=== PATIENT | female | born 1960 | race Caucasian/White ===

== ENCOUNTER 2016-07-14 08:38 | Outpatient (CLI) | payer BC ==
[~2016-07-14] VITALS: Ht 167.6 cm; Wt 95.0 kg
[~2016-07-14 08:38] MED LIST: ACYCLOVIR400 MG PO; ALEVE 220MG220 MG PO; AMBIEN 10MG10 MG PO; AMBIEN10 MG PO; CELEXA 20MG20 MG/TA1 PO; CELEXA 20MG20 MG/TAB PO; CELEXA20 MG PO; DEPO-PROVER150 MG/M1 IM; DOXYCYCLINE 10100 MG PO; IMURAN 50MG TAB50 MG PO; IRON325 M1 PO; MEDROXYPROGESTERONE; MOBIC15 MG PO; MULTI VITAMINS1 TAB PO; NAPROSYN250 MG PO; NEURONTIN300 MG/CAP PO; PENTASA PO; PREDNISONE20 MG PO; REMICADE IV; REMICADE V100 MG/VIA IV; ULTRAM 50MG TAB50 MG PO; VALTREX PO; VITAMIN B COMPL1 T16 PO; ZYRTEC10 MG PO
[2016-07-14 09:18] LABS: MEAN CELL VOLUME 92 fl (80.0-100.0); MEAN CORPUSCULAR HGB CONC 32 g/dl (33.0-37.0); MEAN PLATELET VOLUME 10.4 fl (7.4-10.4); PLATELET COUNT 174 K/mm3 (130-400); RED BLOOD COUNT 3.55 M/mm3 (4.10-5.30); REDCELL DISTRIBUTION WIDTH-CV 13.3 % (11.5-14.5); WHITE BLOOD COUNT 3.4 K/mm3 (4.8-10.8)
[2016-07-14 09:19] LABS: HEMATOCRIT 32.8 % (37.0-47.0); HEMOGLOBIN 10.6 g/dl (12.5-16.0); MEAN CORPUSCULAR HEMOGLOBIN 30 pg (27.0-31.0)
[2016-07-14 09:27] VITALS: BP 98/55; PULSE 74; TEMP 98.3
[2016-07-14 09:32] LABS: ADJUSTED CALCIUM 9.6 mg/dL (8.4-10.2); ALBUMIN 4.4 gm/dL (3.5-5.0); BILIRUBIN,TOTAL 0.7 mg/dL (0.0-1.0); CALCIUM 9.9 mg/dL (8.4-10.2); CREATININE, serum 0.82 mg/dL (0.52-1.25); POTASSIUM 4.5 mmol/L (3.4-5.0); TOTAL PROTEIN 7.8 gm/dL (6.4-8.2)
[2016-07-14 10:35] VITALS: BP 103/56; PULSE 70; TEMP 98.3
[2016-07-14 11:05] VITALS: BP 123/67; PULSE 69; TEMP 98.4
[2016-07-14 11:35] VITALS: BP 89/56; PULSE 71; TEMP 98.7
[2016-07-14 12:12] VITALS: BP 121/65; PULSE 69; TEMP 98.2
== END 2016-07-14 12:20 | disposition home or self-care (01) ==
LOC: EUO 08:38
PROVIDERS: Internal Medicine Gastroenterology
DX: K50.90 Crohn's disease, unspecified, without complications (principal)
CPT/HCPCS: J1745; J2930; J7050

== ENCOUNTER 2016-09-08 09:04 | Outpatient (CLI) | payer BC ==
[~2016-09-08] VITALS: Ht 167.6 cm; Wt 95.5 kg
[2016-09-08 09:39] VITALS: BP 99/61; PULSE 76; TEMP 98.7
[2016-09-08 10:12] LABS: MEAN CELL VOLUME 94 fl (80.0-100.0); MEAN CORPUSCULAR HGB CONC 32 g/dl (33.0-37.0); MEAN PLATELET VOLUME 10.7 fl (7.4-10.4); PLATELET COUNT 189 K/mm3 (130-400); RED BLOOD COUNT 3.63 M/mm3 (4.10-5.30); REDCELL DISTRIBUTION WIDTH-CV 13.2 % (11.5-14.5); WHITE BLOOD COUNT 4.2 K/mm3 (4.8-10.8)
[2016-09-08 10:16] LABS: HEMATOCRIT 34.2 % (37.0-47.0); MEAN CORPUSCULAR HEMOGLOBIN 30 pg (27.0-31.0)
[2016-09-08 10:21] LABS: ADJUSTED CALCIUM 9.3 mg/dL (8.4-10.2); ALBUMIN 4.2 gm/dL (3.5-5.0); BILIRUBIN,TOTAL 0.7 mg/dL (0.0-1.0); CALCIUM 9.5 mg/dL (8.4-10.2); CREATININE, serum 0.86 mg/dL (0.52-1.25); POTASSIUM 4.1 mmol/L (3.4-5.0); TOTAL PROTEIN 7.9 gm/dL (6.4-8.2)
[2016-09-08 11:00] VITALS: BP 110/70; PULSE 68; TEMP 96.9
[2016-09-08 11:30] VITALS: BP 131/89; PULSE 60
[2016-09-08 12:00] VITALS: BP 141/89; PULSE 64; TEMP 98
[2016-09-08 12:30] VITALS: BP 127/69; PULSE 71; TEMP 98
== END 2016-09-08 13:11 | disposition home or self-care (01) ==
LOC: EUO 09:04
PROVIDERS: Internal Medicine Gastroenterology
DX: K50.90 Crohn's disease, unspecified, without complications (principal)
CPT/HCPCS: J1745; J2930; J7050

== ENCOUNTER 2016-11-03 09:14 | Outpatient (CLI) | payer BC ==
[~2016-11-03] VITALS: Ht 167.6 cm; Wt 95.9 kg
[2016-11-03 10:13] LABS: MEAN CELL VOLUME 95 fl (80.0-100.0); MEAN CORPUSCULAR HGB CONC 32 g/dl (33.0-37.0); MEAN PLATELET VOLUME 10.3 fl (7.4-10.4); PLATELET COUNT 176 K/mm3 (130-400); RED BLOOD COUNT 3.31 M/mm3 (4.10-5.30); WHITE BLOOD COUNT 4.2 K/mm3 (4.8-10.8)
[2016-11-03 10:21] LABS: ADJUSTED CALCIUM 9.4 mg/dL (8.4-10.2); ALBUMIN 3.9 gm/dL (3.5-5.0); BILIRUBIN,TOTAL 0.7 mg/dL (0.0-1.0); CALCIUM 9.3 mg/dL (8.4-10.2); CREATININE, serum 0.89 mg/dL (0.52-1.25); POTASSIUM 3.9 mmol/L (3.4-5.0); TOTAL PROTEIN 6.8 gm/dL (6.4-8.2)
[2016-11-03 10:25] LABS: HEMATOCRIT 31.3 % (37.0-47.0); HEMOGLOBIN 10.1 g/dl (12.5-16.0); MEAN CORPUSCULAR HEMOGLOBIN 31 pg (27.0-31.0)
[2016-11-03 10:31] VITALS: BP 114/70; PULSE 72; TEMP 99.2
[2016-11-03 11:10] VITALS: BP 105/67; PULSE 59; TEMP 98.1
[2016-11-03 11:40] VITALS: BP 118/72; PULSE 60; TEMP 98.4
[2016-11-03 12:10] VITALS: BP 122/70; PULSE 69
[2016-11-03 12:40] VITALS: BP 106/62; PULSE 74
[2016-11-03 13:10] VITALS: BP 112/76; PULSE 67
== END 2016-11-03 13:35 | disposition home or self-care (01) ==
LOC: EUO 09:14
PROVIDERS: Internal Medicine Gastroenterology
DX: K50.90 Crohn's disease, unspecified, without complications (principal)
CPT/HCPCS: J1745; J2930; J7050

== ENCOUNTER 2017-01-05 08:48 | Outpatient (CLI) | payer BC ==
[~2017-01-05] VITALS: Ht 167.6 cm; Wt 95.4 kg
[2017-01-05 09:30] LABS: MEAN CELL VOLUME 94 fl (80.0-100.0); MEAN CORPUSCULAR HGB CONC 33 g/dl (33.0-37.0); MEAN PLATELET VOLUME 10.3 fl (7.4-10.4); PLATELET COUNT 174 K/mm3 (130-400); RED BLOOD COUNT 3.59 M/mm3 (4.10-5.30); WHITE BLOOD COUNT 3.8 K/mm3 (4.8-10.8)
[2017-01-05 09:32] LABS: HEMATOCRIT 33.7 % (37.0-47.0); MEAN CORPUSCULAR HEMOGLOBIN 31 pg (27.0-31.0)
[2017-01-05 09:41] LABS: ADJUSTED CALCIUM 8.9 mg/dL (8.4-10.2); ALBUMIN 4.2 gm/dL (3.5-5.0); BILIRUBIN,TOTAL 0.6 mg/dL (0.0-1.0); CALCIUM 9.1 mg/dL (8.4-10.2); CREATININE, serum 0.76 mg/dL (0.52-1.25); POTASSIUM 4.5 mmol/L (3.4-5.0); TOTAL PROTEIN 7.4 gm/dL (6.4-8.2)
[2017-01-05 10:37] VITALS: BP 112/68; PULSE 74; TEMP 98.5
[2017-01-05] MEDS ORDERED: CYMBALTA 20MG20 MG PO (10:41)
[2017-01-05 11:07] VITALS: BP 125/73; PULSE 78; TEMP 98.6
[2017-01-05 11:45] VITALS: BP 124/73; PULSE 67; TEMP 98.4
[2017-01-05 12:43] VITALS: BP 132/81; PULSE 74; TEMP 99.1
== END 2017-01-05 12:43 | disposition home or self-care (01) ==
LOC: EUO 08:48
PROVIDERS: Internal Medicine Gastroenterology
DX: K50.90 Crohn's disease, unspecified, without complications (principal); Z79.899 Other long term (current) drug therapy
CPT/HCPCS: J1745; J2930; J7050

== ENCOUNTER 2017-03-09 12:55 | Outpatient (CLI) | payer BC ==
[~2017-03-09] VITALS: Ht 167.6 cm; Wt 98.7 kg
[~2017-03-09 12:55] MED LIST changes: +CYMBALTA 20MG20 MG PO
[2017-03-09 13:22] LABS: MEAN CELL VOLUME 93 fl (80.0-100.0); MEAN CORPUSCULAR HGB CONC 33 g/dl (33.0-37.0); MEAN PLATELET VOLUME 10.5 fl (7.4-10.4); PLATELET COUNT 162 K/mm3 (130-400); REDCELL DISTRIBUTION WIDTH-CV 12.9 % (11.5-14.5)
[2017-03-09 13:26] LABS: HEMATOCRIT 32.4 % (37.0-47.0); HEMOGLOBIN 10.8 g/dl (12.5-16.0); MEAN CORPUSCULAR HEMOGLOBIN 31 pg (27.0-31.0)
[2017-03-09 13:34] LABS: ALBUMIN 4.3 gm/dL (3.5-5.0); BILIRUBIN,TOTAL 0.6 mg/dL (0.0-1.0); CALCIUM 9.5 mg/dL (8.4-10.2); CREATININE, serum 0.89 mg/dL (0.52-1.25); POTASSIUM 4.2 mmol/L (3.4-5.0); TOTAL PROTEIN 7.6 gm/dL (6.4-8.2)
[2017-03-09 14:10] VITALS: BP 120/70; PULSE 65; TEMP 98.3
[2017-03-09 14:40] VITALS: BP 112/66; PULSE 66
[2017-03-09 15:10] VITALS: BP 118/74; PULSE 58; TEMP 98.3
[2017-03-09 15:40] VITALS: BP 126/74; PULSE 58
[2017-03-09 16:10] VITALS: BP 118/64; PULSE 62; TEMP 98.1
== END 2017-03-09 16:51 | disposition home or self-care (01) ==
LOC: EUO 12:55
PROVIDERS: Internal Medicine Gastroenterology
DX: K50.90 Crohn's disease, unspecified, without complications (principal); Z79.899 Other long term (current) drug therapy
CPT/HCPCS: J1745; J2930; J7050; Q5102-ZB

== ENCOUNTER 2017-05-03 13:02 | Outpatient (CLI) | payer BC ==
[~2017-05-03] VITALS: Ht 167.6 cm; Wt 97.5 kg
[2017-05-03 13:26] LABS: HEMATOCRIT 31.4 % (37.0-47.0); HEMOGLOBIN 10.3 g/dl (12.5-16.0); MEAN CELL VOLUME 95 fl (80.0-100.0); MEAN CORPUSCULAR HEMOGLOBIN 31 pg (27.0-31.0); MEAN CORPUSCULAR HGB CONC 33 g/dl (33.0-37.0); MEAN PLATELET VOLUME 10.5 fl (7.4-10.4); PLATELET COUNT 169 K/mm3 (130-400); WHITE BLOOD COUNT 5.3 K/mm3 (4.8-10.8)
[2017-05-03 13:43] LABS: ADJUSTED CALCIUM 9.3 mg/dL (8.4-10.2); ALBUMIN 4.3 gm/dL (3.5-5.0); BILIRUBIN,TOTAL 0.4 mg/dL (0.0-1.0); CALCIUM 9.5 mg/dL (8.4-10.2); CREATININE, serum 0.74 mg/dL (0.52-1.25); POTASSIUM 4.2 mmol/L (3.4-5.0); TOTAL PROTEIN 7.6 gm/dL (6.4-8.2)
[2017-05-03 15:00] VITALS: BP 123/72; PULSE 64; TEMP 98.7
[2017-05-03 15:30] VITALS: BP 130/78; PULSE 63; TEMP 98
[2017-05-03 16:00] VITALS: BP 134/73; PULSE 62; TEMP 98.5
[2017-05-03 16:30] VITALS: BP 141/75; PULSE 61; TEMP 98.4
[2017-05-03 17:00] VITALS: BP 126/78; PULSE 64; TEMP 98.2
== END 2017-05-03 17:30 | disposition home or self-care (01) ==
LOC: EUO 13:02
PROVIDERS: Physician Assistant
DX: K50.90 Crohn's disease, unspecified, without complications (principal)
CPT/HCPCS: J1200; J2930; J7050; Q5102-ZB

== ENCOUNTER 2017-06-29 08:58 | Outpatient (CLI) | payer BC ==
[~2017-06-29] VITALS: Ht 167.6 cm; Wt 97.2 kg
[2017-06-29 10:01] LABS: MEAN CELL VOLUME 95 fl (80.0-100.0); MEAN CORPUSCULAR HGB CONC 31 g/dl (33.0-37.0); PLATELET COUNT 191 K/mm3 (130-400); RED BLOOD COUNT 2.53 M/mm3 (4.10-5.30); REDCELL DISTRIBUTION WIDTH-CV 13.6 % (11.5-14.5)
[2017-06-29 10:02] LABS: HEMATOCRIT 24.1 % (37.0-47.0); HEMOGLOBIN 7.4 g/dl (12.5-16.0); MEAN CORPUSCULAR HEMOGLOBIN 29 pg (27.0-31.0)
[2017-06-29 10:11] LABS: ALBUMIN 4.1 gm/dL (3.5-5.0); BILIRUBIN,TOTAL 0.3 mg/dL (0.0-1.0); CALCIUM 9.6 mg/dL (8.4-10.2); CREATININE, serum 0.87 mg/dL (0.52-1.25); POTASSIUM 4.2 mmol/L (3.4-5.0)
[2017-06-29 11:14] VITALS: BP 119/59; PULSE 76; TEMP 98
[2017-06-29 11:45] VITALS: BP 121/77; PULSE 71; TEMP 98
[2017-06-29 12:15] VITALS: BP 126/75; PULSE 69
[2017-06-29 12:45] VITALS: BP 129/79; PULSE 70
== END 2017-06-29 13:21 | disposition home or self-care (01) ==
LOC: EUO 08:58
PROVIDERS: Internal Medicine Gastroenterology
DX: K50.90 Crohn's disease, unspecified, without complications (principal)
CPT/HCPCS: J2930; J7050; Q5102-ZB

== ENCOUNTER 2017-08-31 10:04 | Outpatient (CLI) | payer BC ==
[~2017-08-31] VITALS: Ht 167.6 cm; Wt 96.0 kg
[2017-08-31 10:27] LABS: MEAN CELL VOLUME 88 fl (80.0-100.0); MEAN CORPUSCULAR HGB CONC 31 g/dl (33.0-37.0); MEAN PLATELET VOLUME 10.1 fl (7.4-10.4); PLATELET COUNT 193 K/mm3 (130-400); REDCELL DISTRIBUTION WIDTH-CV 15.7 % (11.5-14.5)
[2017-08-31 10:29] LABS: HEMATOCRIT 27.2 % (37.0-47.0); HEMOGLOBIN 8.4 g/dl (12.5-16.0); MEAN CORPUSCULAR HEMOGLOBIN 27 pg (27.0-31.0)
[2017-08-31 10:50] LABS: ALBUMIN 4.3 gm/dL (3.5-5.0); BILIRUBIN,TOTAL 0.4 mg/dL (0.0-1.0); CALCIUM 8.9 mg/dL (8.4-10.2); CREATININE, serum 0.85 mg/dL (0.52-1.25); POTASSIUM 3.8 mmol/L (3.4-5.0); TOTAL PROTEIN 7.4 gm/dL (6.4-8.2)
[2017-08-31 12:00] VITALS: BP 122/71; PULSE 74; TEMP 98.6
[2017-08-31 12:30] VITALS: BP 122/68; PULSE 73; TEMP 98.3
[2017-08-31 13:00] VITALS: BP 99/50; PULSE 85; TEMP 98.5
[2017-08-31 13:30] VITALS: BP 148/76; PULSE 76; TEMP 98.4
[2017-08-31 14:00] VITALS: BP 148/76; PULSE 74; TEMP 98.5
== END 2017-08-31 15:45 | disposition home or self-care (01) ==
LOC: EUO 10:04
PROVIDERS: Internal Medicine Gastroenterology
DX: K50.90 Crohn's disease, unspecified, without complications (principal); Z79.899 Other long term (current) drug therapy
CPT/HCPCS: J2930; J7050; Q5102-ZB

== ENCOUNTER 2017-10-25 08:49 | Outpatient (CLI) | payer BC ==
[~2017-10-25] VITALS: Ht 167.6 cm; Wt 96.0 kg
[2017-10-25 09:10] VITALS: BP 120/75; PULSE 67; TEMP 98.7
[2017-10-25 09:16] LABS: MEAN CELL VOLUME 89 fl (80.0-100.0); MEAN CORPUSCULAR HGB CONC 31 g/dl (33.0-37.0); PLATELET COUNT 150 K/mm3 (130-400); REDCELL DISTRIBUTION WIDTH-CV 18.3 % (11.5-14.5)
[2017-10-25] MEDS ORDERED: IRON TABLETS325 MG PO (09:16)
[2017-10-25 09:19] LABS: HEMATOCRIT 31.1 % (37.0-47.0); HEMOGLOBIN 9.6 g/dl (12.5-16.0); MEAN CORPUSCULAR HEMOGLOBIN 27 pg (27.0-31.0)
[2017-10-25 09:25] LABS: BILIRUBIN,TOTAL 0.5 mg/dL (0.0-1.0); CALCIUM 9.3 mg/dL (8.4-10.2); CREATININE, serum 0.79 mg/dL (0.52-1.25); POTASSIUM 3.9 mmol/L (3.4-5.0); TOTAL PROTEIN 7.8 gm/dL (6.4-8.2)
[2017-10-25 10:45] VITALS: BP 129/81; PULSE 80; TEMP 98.2
[2017-10-25 11:15] VITALS: BP 124/73; PULSE 70; TEMP 98.4
[2017-10-25 11:45] VITALS: BP 119/7; BP 119/74; PULSE 78; TEMP 98.5
[2017-10-25 12:15] VITALS: BP 136/85; PULSE 72; TEMP 98.1
[2017-10-25 12:45] VITALS: BP 148/84; PULSE 71; TEMP 98.1
== END 2017-10-25 14:30 | disposition home or self-care (01) ==
LOC: EUO 08:49
PROVIDERS: Internal Medicine Gastroenterology
DX: K50.90 Crohn's disease, unspecified, without complications (principal)
CPT/HCPCS: J2920; J7050; Q5103

== ENCOUNTER 2017-12-20 09:01 | Outpatient (CLI) | payer BC ==
[~2017-12-20] VITALS: Ht 167.6 cm; Wt 96.2 kg
[~2017-12-20 09:01] MED LIST changes: +IRON TABLETS325 MG PO
[2017-12-20 10:14] LABS: HEMOGLOBIN 10.1 g/dl (12.5-16.0); MEAN CELL VOLUME 95 fl (80.0-100.0); MEAN CORPUSCULAR HEMOGLOBIN 30 pg (27.0-31.0); MEAN CORPUSCULAR HGB CONC 32 g/dl (33.0-37.0); MEAN PLATELET VOLUME 10.5 fl (7.4-10.4); PLATELET COUNT 170 K/mm3 (130-400); RED BLOOD COUNT 3.37 M/mm3 (4.10-5.30); REDCELL DISTRIBUTION WIDTH-CV 14.7 % (11.5-14.5)
[2017-12-20 10:16] LABS: HEMATOCRIT 31.9 % (37.0-47.0)
[2017-12-20 10:21] LABS: ALBUMIN 3.6 gm/dL (3.5-5.0); BILIRUBIN,TOTAL 0.3 mg/dL (0.0-1.0); CALCIUM 8.8 mg/dL (8.4-10.2); CREATININE, serum 0.71 mg/dL (0.52-1.25); POTASSIUM 4.1 mmol/L (3.4-5.0); TOTAL PROTEIN 7.2 gm/dL (6.4-8.2)
[2017-12-20 11:00] VITALS: BP 134/79; PULSE 61; TEMP 98.5
[2017-12-20 11:30] VITALS: BP 125/78; PULSE 64; TEMP 98.3
[2017-12-20 12:00] VITALS: BP 128/73; PULSE 67; TEMP 98.3
[2017-12-20 12:30] VITALS: BP 137/76; PULSE 73; TEMP 98.5
[2017-12-20 13:00] VITALS: BP 141/80; PULSE 67; TEMP 98.2
== END 2017-12-20 13:19 | disposition home or self-care (01) ==
LOC: EUO 09:01
PROVIDERS: Internal Medicine Gastroenterology
DX: K50.90 Crohn's disease, unspecified, without complications (principal)
CPT/HCPCS: J2930; J7050; Q5103

== ENCOUNTER 2018-02-14 09:53 | Outpatient (CLI) | payer BC ==
[2018-02-14 10:17] LABS: HEMOGLOBIN 11.2 g/dl (12.5-16.0); MEAN CELL VOLUME 93 fl (80.0-100.0); MEAN CORPUSCULAR HEMOGLOBIN 30 pg (27.0-31.0); MEAN CORPUSCULAR HGB CONC 33 g/dl (33.0-37.0); MEAN PLATELET VOLUME 10.5 fl (7.4-10.4); PLATELET COUNT 148 K/mm3 (130-400); REDCELL DISTRIBUTION WIDTH-CV 12.6 % (11.5-14.5)
[2018-02-14 10:19] LABS: HEMATOCRIT 34.3 % (37.0-47.0)
[2018-02-14 10:29] LABS: ALBUMIN 4.2 gm/dL (3.5-5.0); BILIRUBIN,TOTAL 0.5 mg/dL (0.0-1.0); CALCIUM 9.4 mg/dL (8.4-10.2); CREATININE, serum 0.78 mg/dL (0.52-1.25); POTASSIUM 3.7 mmol/L (3.4-5.0); TOTAL PROTEIN 7.6 gm/dL (6.4-8.2)
[2018-02-14 10:36] VITALS: BP 111/62; PULSE 70; TEMP 98.5
[2018-02-14 11:15] VITALS: BP 130/42; PULSE 73; TEMP 98.5
[2018-02-14 11:45] VITALS: BP 110/63; PULSE 64; TEMP 98.1
[2018-02-14 12:30] VITALS: BP 124/72; PULSE 59; TEMP 98.7
[2018-02-14 13:15] VITALS: BP 120/70; PULSE 60; TEMP 98.7
== END 2018-02-14 13:30 | disposition home or self-care (01) ==
LOC: EUO 09:53
PROVIDERS: Internal Medicine Gastroenterology
DX: K50.90 Crohn's disease, unspecified, without complications (principal); Z79.899 Other long term (current) drug therapy
CPT/HCPCS: J2920; J7050; Q5103

== ENCOUNTER 2018-04-11 08:52 | Outpatient (CLI) | payer BC ==
[~2018-04-11] VITALS: Ht 170.2 cm; Wt 97.7 kg
[2018-04-11 09:00] VITALS: BP 105/57; PULSE 76; TEMP 98.4
[2018-04-11 09:24] LABS: BILIRUBIN,TOTAL 0.6 mg/dL (0.0-1.0); CREATININE, serum 0.75 mg/dL (0.52-1.25); POTASSIUM 3.7 mmol/L (3.4-5.0); TOTAL PROTEIN 7.4 gm/dL (6.4-8.2)
[2018-04-11 09:27] LABS: HEMOGLOBIN 10.8 g/dl (12.5-16.0); MEAN CELL VOLUME 93 fl (80.0-100.0); MEAN CORPUSCULAR HEMOGLOBIN 30 pg (27.0-31.0); MEAN CORPUSCULAR HGB CONC 33 g/dl (33.0-37.0); PLATELET COUNT 185 K/mm3 (130-400); RED BLOOD COUNT 3.56 M/mm3 (4.10-5.30); REDCELL DISTRIBUTION WIDTH-CV 13.3 % (11.5-14.5)
[2018-04-11 09:28] LABS: HEMATOCRIT 33.1 % (37.0-47.0)
[2018-04-11 10:15] VITALS: BP 109/61; PULSE 70; TEMP 98.4
[2018-04-11 10:45] VITALS: BP 110/80; PULSE 78; TEMP 98.2
[2018-04-11 11:15] VITALS: BP 120/67; PULSE 65
[2018-04-11 12:29] VITALS: BP 128/68; PULSE 71; TEMP 98.2
== END 2018-04-11 12:30 | disposition home or self-care (01) ==
LOC: EUO 08:52
PROVIDERS: Internal Medicine Gastroenterology
DX: K50.90 Crohn's disease, unspecified, without complications (principal); Z79.899 Other long term (current) drug therapy
CPT/HCPCS: J2930; J7050; Q5103

== ENCOUNTER 2018-06-06 09:01 | Outpatient (CLI) | payer BC ==
[~2018-06-06] VITALS: Ht 170.2 cm; Wt 97.4 kg
[2018-06-06 09:33] LABS: HEMOGLOBIN 10.6 g/dl (12.5-16.0); MEAN CELL VOLUME 95 fl (80.0-100.0); MEAN CORPUSCULAR HEMOGLOBIN 31 pg (27.0-31.0); MEAN CORPUSCULAR HGB CONC 32 g/dl (33.0-37.0); MEAN PLATELET VOLUME 10.6 fl (7.4-10.4); PLATELET COUNT 165 K/mm3 (130-400); RED BLOOD COUNT 3.46 M/mm3 (4.10-5.30); REDCELL DISTRIBUTION WIDTH-CV 12.9 % (11.5-14.5)
[2018-06-06] MEDS ORDERED: MUCINEX D 12001 TER PO (09:53)
[2018-06-06 09:59] LABS: ALBUMIN 3.9 gm/dL (3.5-5.0); BILIRUBIN,TOTAL 0.5 mg/dL (0.0-1.0); CALCIUM 9.1 mg/dL (8.4-10.2); CREATININE, serum 0.75 mg/dL (0.52-1.25); POTASSIUM 3.8 mmol/L (3.4-5.0)
[2018-06-06 10:30] VITALS: BP 136/71; PULSE 65; TEMP 97.6
[2018-06-06 11:00] VITALS: BP 122/73; PULSE 59; TEMP 98.1
[2018-06-06 11:30] VITALS: BP 127/77; PULSE 66; TEMP 98.4
[2018-06-06 12:00] VITALS: BP 130/74; PULSE 65; TEMP 98
[2018-06-06 12:30] VITALS: BP 137/78; PULSE 65; TEMP 97.8
== END 2018-06-06 12:38 | disposition home or self-care (01) ==
LOC: EUO 09:01
PROVIDERS: Internal Medicine Gastroenterology
DX: K50.90 Crohn's disease, unspecified, without complications (principal); Z79.899 Other long term (current) drug therapy
CPT/HCPCS: J2930; J7050; Q5103

== ENCOUNTER 2018-08-01 10:48 | Outpatient (CLI) | payer BC ==
[~2018-08-01] VITALS: Ht 170.2 cm; Wt 97.5 kg
[2018-08-01] VITALS (8 sets, daily range): BP systolic 126–165; BP diastolic 69–98; PULSE 58–69; TEMP 98.2–98.5
[~2018-08-01 10:48] MED LIST changes: +MUCINEX D 12001 TER PO
[2018-08-01 11:17] LABS: HEMATOCRIT 34.1 % (37.0-47.0); HEMOGLOBIN 11.1 g/dl (12.5-16.0); MEAN CELL VOLUME 94 fl (80.0-100.0); MEAN CORPUSCULAR HEMOGLOBIN 31 pg (27.0-31.0); MEAN CORPUSCULAR HGB CONC 33 g/dl (33.0-37.0); MEAN PLATELET VOLUME 10.5 fl (7.4-10.4); PLATELET COUNT 163 K/mm3 (130-400); RED BLOOD COUNT 3.63 M/mm3 (4.10-5.30); REDCELL DISTRIBUTION WIDTH-CV 12.9 % (11.5-14.5)
[2018-08-01 11:26] LABS: ALBUMIN 4.1 gm/dL (3.5-5.0); BILIRUBIN,TOTAL 0.4 mg/dL (0.0-1.0); CALCIUM 9.2 mg/dL (8.4-10.2); CREATININE, serum 0.74 mg/dL (0.52-1.25); TOTAL PROTEIN 7.5 gm/dL (6.4-8.2)
== END 2018-08-01 14:50 | disposition home or self-care (01) ==
LOC: EUO 10:48
PROVIDERS: Internal Medicine Gastroenterology
DX: K50.90 Crohn's disease, unspecified, without complications (principal); Z79.899 Other long term (current) drug therapy
CPT/HCPCS: J1200; J1745; J2920; J7050; Q5103

== ENCOUNTER 2018-09-26 08:06 | Outpatient (CLI) | payer BC ==
[2018-09-26] VITALS (8 sets, daily range): BP systolic 110–127; BP diastolic 68–74; PULSE 69–75; TEMP 98.8
[~2018-09-26] VITALS: Ht 170.2 cm; Wt 97.5 kg
[2018-09-26 08:42] LABS: ALANINE AMINOTRANSFERASE < 6 U/L (9-52); ALKALINE PHOSPHATASE 91 U/L (50-136); ANION GAP 6 mmol/L (7-16); AST,SGOT 19 U/L (15-37); BILIRUBIN,TOTAL 0.4 mg/dL (0.0-1.0); BLOOD UREA NITROGEN 20 mg/dL (7-17); CALCIUM 9.1 mg/dL (8.4-10.2); CARBON DIOXIDE 28 mmol/L (22-30); CHLORIDE 107 mmol/L (98-107); CREATININE, serum 0.74 mg/dL (0.52-1.25); GLUCOSE 104 mg/dL (74-106); POTASSIUM 3.8 mmol/L (3.4-5.0); SODIUM 142 mmol/L (137-145); TOTAL PROTEIN 7.4 gm/dL (6.4-8.2)
[2018-09-26 08:45] LABS: HEMOGLOBIN 11.2 g/dl (12.5-16.0); MEAN CELL VOLUME 93 fl (80.0-100.0); MEAN CORPUSCULAR HEMOGLOBIN 30 pg (27.0-31.0); MEAN CORPUSCULAR HGB CONC 32 g/dl (33.0-37.0); MEAN PLATELET VOLUME 11.1 fl (7.4-10.4); PLATELET COUNT 164 K/mm3 (130-400); RED BLOOD COUNT 3.71 M/mm3 (4.10-5.30); REDCELL DISTRIBUTION WIDTH-CV 12.9 % (11.5-14.5)
[2018-09-26 09:12] LABS: HEMATOCRIT 34.6 % (37.0-47.0)
== END 2018-09-26 11:37 | disposition home or self-care (01) ==
LOC: EUO 08:06
PROVIDERS: Internal Medicine Gastroenterology
DX: K50.90 Crohn's disease, unspecified, without complications (principal); Z79.899 Other long term (current) drug therapy
CPT/HCPCS: J2930; J7050; Q5103

== ENCOUNTER 2018-11-21 08:19 | Outpatient (CLI) | payer BC ==
[~2018-11-21] VITALS: Ht 170.2 cm; Wt 98.3 kg
[2018-11-21 08:43] LABS: MEAN CELL VOLUME 94 fl (80.0-100.0); MEAN CORPUSCULAR HEMOGLOBIN 30 pg (27.0-31.0); MEAN CORPUSCULAR HGB CONC 32 g/dl (33.0-37.0); MEAN PLATELET VOLUME 10.4 fl (7.4-10.4); PLATELET COUNT 167 K/mm3 (130-400); RED BLOOD COUNT 3.63 M/mm3 (4.10-5.30); REDCELL DISTRIBUTION WIDTH-CV 12.9 % (11.5-14.5)
[2018-11-21 08:50] LABS: ALBUMIN 4.2 gm/dL (3.5-5.0); BILIRUBIN,TOTAL 0.4 mg/dL (0.0-1.0); CALCIUM 9.4 mg/dL (8.4-10.2); CREATININE, serum 0.77 (0.52-1.25); TOTAL PROTEIN 7.7 gm/dL (6.4-8.2)
[2018-11-21 09:45] VITALS: BP 113/69; PULSE 62; TEMP 98.5
[2018-11-21 10:15] VITALS: BP 141/69; PULSE 69; TEMP 98.5
[2018-11-21 10:45] VITALS: BP 134/66; PULSE 72; TEMP 98.5
[2018-11-21 11:15] VITALS: BP 151/85; PULSE 72; TEMP 98.5
[2018-11-21 11:30] VITALS: BP 149/78; PULSE 70; TEMP 98.5
== END 2018-11-21 11:30 | disposition home or self-care (01) ==
LOC: EUO 08:19
PROVIDERS: Internal Medicine Gastroenterology
DX: K50.90 Crohn's disease, unspecified, without complications (principal); Z79.899 Other long term (current) drug therapy
CPT/HCPCS: J2920; J7050; Q5103

== ENCOUNTER 2019-01-16 08:10 | Outpatient (CLI) | payer BC ==
[~2019-01-16] VITALS: Ht 170.2 cm; Wt 96.7 kg
[2019-01-16 09:10] LABS: HEMOGLOBIN 10.3 g/dl (12.5-16.0); MEAN CELL VOLUME 94 fl (80.0-100.0); MEAN CORPUSCULAR HEMOGLOBIN 30 pg (27.0-31.0); MEAN CORPUSCULAR HGB CONC 32 g/dl (33.0-37.0); MEAN PLATELET VOLUME 10.9 fl (7.4-10.4); PLATELET COUNT 152 K/mm3 (130-400); RED BLOOD COUNT 3.42 M/mm3 (4.10-5.30); REDCELL DISTRIBUTION WIDTH-CV 13.1 % (11.5-14.5)
[2019-01-16 09:21] LABS: ALBUMIN 3.8 gm/dL (3.5-5.0); BILIRUBIN,TOTAL 0.4 mg/dL (0.0-1.0); CALCIUM 9.1 mg/dL (8.4-10.2); CREATININE, serum 0.79 (0.52-1.25); POTASSIUM 3.9 mmol/L (3.4-5.0); TOTAL PROTEIN 7.1 gm/dL (6.4-8.2)
[2019-01-16 10:02] VITALS: BP 168/79; PULSE 68; TEMP 98.4
[2019-01-16 10:25] VITALS: BP 132/68; PULSE 62; TEMP 98.4
[2019-01-16 10:55] VITALS: BP 128/72; PULSE 66; TEMP 98.4
[2019-01-16 11:25] VITALS: BP 135/72; PULSE 62; TEMP 98.4
[2019-01-16 11:55] VITALS: BP 139/70; PULSE 64; TEMP 98.1
== END 2019-01-16 12:00 | disposition home or self-care (01) ==
LOC: EUO 08:10
PROVIDERS: Internal Medicine Gastroenterology
DX: K50.90 Crohn's disease, unspecified, without complications (principal); Z79.899 Other long term (current) drug therapy
CPT/HCPCS: J2930; J7050; Q5103

== ENCOUNTER 2019-03-13 10:20 | Outpatient (CLI) | payer BC ==
[~2019-03-13] VITALS: Ht 170.2 cm; Wt 97.5 kg
[2019-03-13 11:06] LABS: ALANINE AMINOTRANSFERASE < 6 U/L (9-52); ALKALINE PHOSPHATASE 90 U/L (50-136); ANION GAP 6 mmol/L (7-16); AST,SGOT 23 U/L (15-37); BILIRUBIN,TOTAL 0.5 mg/dL (0.0-1.0); BLOOD UREA NITROGEN 20 mg/dL (7-17); CALCIUM 8.9 mg/dL (8.4-10.2); CARBON DIOXIDE 27 mmol/L (22-30); CHLORIDE 107 mmol/L (98-107); CREATININE, serum 0.83 (0.52-1.25); GLUCOSE 86 mg/dL (74-106); POTASSIUM 3.9 mmol/L (3.4-5.0); SODIUM 140 mmol/L (137-145); TOTAL PROTEIN 7.3 gm/dL (6.4-8.2)
[2019-03-13 11:30] VITALS: BP 113/72; PULSE 66; TEMP 98.9
[2019-03-13 12:05] VITALS: BP 124/71; PULSE 74; TEMP 99
[2019-03-13] MEDS ORDERED: ATARAX 25MG25 MG/TAB PO (12:11)
[2019-03-13 12:13] LABS: HEMATOCRIT 30.3 % (37.0-47.0); HEMOGLOBIN 9.6 g/dl (12.5-16.0); MEAN CELL VOLUME 94 fl (80.0-100.0); MEAN CORPUSCULAR HEMOGLOBIN 30 pg (27.0-31.0); MEAN CORPUSCULAR HGB CONC 32 g/dl (33.0-37.0); MEAN PLATELET VOLUME 10.8 fl (7.4-10.4); PLATELET COUNT 156 K/mm3 (130-400); RED BLOOD COUNT 3.22 M/mm3 (4.10-5.30); REDCELL DISTRIBUTION WIDTH-CV 13.6 % (11.5-14.5)
[2019-03-13 12:35] VITALS: BP 120/69; PULSE 16; TEMP 73
[2019-03-13 13:00] VITALS: BP 135/82; PULSE 66; TEMP 98.2
[2019-03-13 13:47] VITALS: BP 139/71; PULSE 81; TEMP 98.4
== END 2019-03-13 14:38 | disposition home or self-care (01) ==
LOC: EUO 10:20
PROVIDERS: Internal Medicine Gastroenterology
DX: K50.90 Crohn's disease, unspecified, without complications (principal); Z79.899 Other long term (current) drug therapy
CPT/HCPCS: J2920; J7050; Q5103

== ENCOUNTER 2019-05-08 10:39 | Outpatient (CLI) | payer BC ==
[~2019-05-08] VITALS: Ht 170.2 cm; Wt 96.1 kg
[~2019-05-08 10:39] MED LIST changes: +ATARAX 25MG25 MG/TAB PO
[2019-05-08 11:04] LABS: HEMATOCRIT 32.5 % (37.0-47.0); HEMOGLOBIN 10.3 g/dl (12.5-16.0); MEAN CELL VOLUME 95 fl (80.0-100.0); MEAN CORPUSCULAR HEMOGLOBIN 30 pg (27.0-31.0); MEAN CORPUSCULAR HGB CONC 32 g/dl (33.0-37.0); MEAN PLATELET VOLUME 10.1 fl (7.4-10.4); PLATELET COUNT 205 K/mm3 (130-400); RED BLOOD COUNT 3.42 M/mm3 (4.10-5.30); REDCELL DISTRIBUTION WIDTH-CV 13.1 % (11.5-14.5)
[2019-05-08 11:19] LABS: ALBUMIN 4.3 gm/dL (3.5-5.0); BILIRUBIN,TOTAL 0.4 mg/dL (0.0-1.0); CALCIUM 9.7 mg/dL (8.4-10.2); CREATININE, serum 0.84 (0.52-1.25); POTASSIUM 4.1 mmol/L (3.4-5.0); TOTAL PROTEIN 7.8 gm/dL (6.4-8.2)
[2019-05-08 12:05] VITALS: BP 118/69; PULSE 70; TEMP 98.1
[2019-05-08 12:35] VITALS: BP 113/65; PULSE 65; TEMP 98.5
[2019-05-08 13:05] VITALS: BP 122/69; PULSE 66
[2019-05-08 13:35] VITALS: BP 131/78; PULSE 68; TEMP 98.4
[2019-05-08 14:05] VITALS: BP 126/74; PULSE 67; TEMP 98.4
== END 2019-05-08 15:26 | disposition home or self-care (01) ==
LOC: EUO 10:39
PROVIDERS: Internal Medicine Gastroenterology
DX: K50.90 Crohn's disease, unspecified, without complications (principal); Z79.899 Other long term (current) drug therapy
CPT/HCPCS: J2930; J7050; Q5103

== ENCOUNTER 2019-09-04 09:54 | Outpatient (CLI) | payer BC ==
[2019-09-04] VITALS (7 sets, daily range): BP systolic 112–135; BP diastolic 62–82; PULSE 69–80; TEMP 97.9–98.4
[~2019-09-04] VITALS: Ht 170.2 cm; Wt 91.2 kg
[2019-09-04 10:30] LABS: MEAN CELL VOLUME 97 fl (80.0-100.0); MEAN CORPUSCULAR HEMOGLOBIN 31 pg (27.0-31.0); MEAN CORPUSCULAR HGB CONC 32 g/dl (33.0-37.0); MEAN PLATELET VOLUME 10.4 fl (7.4-10.4); PLATELET COUNT 204 K/mm3 (130-400); REDCELL DISTRIBUTION WIDTH-CV 13.4 % (11.5-14.5)
[2019-09-04 10:34] LABS: HEMATOCRIT 34.8 % (37.0-47.0)
[2019-09-04 10:40] LABS: ALANINE AMINOTRANSFERASE < 6 U/L (9-52); ALBUMIN 4.8 gm/dL (3.5-5.0); ALKALINE PHOSPHATASE 88 U/L (50-136); ANION GAP 10 mmol/L (7-16); AST,SGOT 25 U/L (15-37); BILIRUBIN,TOTAL 0.5 mg/dL (0.0-1.0); BLOOD UREA NITROGEN 23 mg/dL (7-17); CALCIUM 9.8 mg/dL (8.4-10.2); CARBON DIOXIDE 28 mmol/L (22-30); CHLORIDE 104 mmol/L (98-107); CREATININE, serum 0.94 (0.52-1.25); GLUCOSE 92 mg/dL (74-106); POTASSIUM 3.9 mmol/L (3.4-5.0); SODIUM 142 mmol/L (137-145); TOTAL PROTEIN 8.5 gm/dL (6.4-8.2)
== END 2019-09-04 14:17 | disposition home or self-care (01) ==
LOC: EUO 09:54
PROVIDERS: Internal Medicine Gastroenterology
DX: K50.90 Crohn's disease, unspecified, without complications (principal); Z79.899 Other long term (current) drug therapy
CPT/HCPCS: J2930; J7050; Q5103

== ENCOUNTER 2019-10-30 09:58 | Outpatient (CLI) | payer BC ==
[~2019-10-30] VITALS: Ht 170.2 cm; Wt 91.7 kg
[2019-10-30 10:31] LABS: MEAN CELL VOLUME 94 fl (80.0-100.0); MEAN CORPUSCULAR HEMOGLOBIN 30 pg (27.0-31.0); MEAN CORPUSCULAR HGB CONC 32 g/dl (33.0-37.0); MEAN PLATELET VOLUME 10.7 fl (7.4-10.4); PLATELET COUNT 183 K/mm3 (130-400); RED BLOOD COUNT 3.66 M/mm3 (4.10-5.30); REDCELL DISTRIBUTION WIDTH-CV 13.5 % (11.5-14.5)
[2019-10-30 10:35] LABS: HEMATOCRIT 34.4 % (37.0-47.0)
[2019-10-30] MEDS ORDERED: CELEXA40 MG PO (10:35)
[2019-10-30 10:38] VITALS: BP 117/63; PULSE 77; TEMP 98.3
[2019-10-30 10:53] LABS: ALBUMIN 4.5 gm/dL (3.5-5.0); BILIRUBIN,TOTAL 0.6 mg/dL (0.0-1.0); CALCIUM 9.7 mg/dL (8.4-10.2); CREATININE, serum 0.88 (0.52-1.25); POTASSIUM 3.8 mmol/L (3.4-5.0); TOTAL PROTEIN 8.1 gm/dL (6.4-8.2)
[2019-10-30 11:20] VITALS: BP 118/82; PULSE 68; TEMP 98.1
[2019-10-30 11:50] VITALS: BP 119/62; PULSE 66; TEMP 98.1
[2019-10-30 12:20] VITALS: BP 134/71; PULSE 63; TEMP 98.1
[2019-10-30 12:50] VITALS: BP 140/74; PULSE 65
[2019-10-30 13:20] VITALS: BP 142/71; PULSE 66; TEMP 98.1
== END 2019-10-30 13:25 | disposition home or self-care (01) ==
LOC: EUO 09:58
PROVIDERS: Internal Medicine Gastroenterology
DX: K50.90 Crohn's disease, unspecified, without complications (principal); Z79.899 Other long term (current) drug therapy
CPT/HCPCS: J2930; J7050; Q5103

== ENCOUNTER 2019-12-25 10:01 | Outpatient (CLI) | payer BC ==
[~2019-12-25] VITALS: Ht 170.2 cm; Wt 92.8 kg
[~2019-12-25 10:01] MED LIST changes: +CELEXA40 MG PO
[2019-12-25 10:49] LABS: HEMOGLOBIN 10.4 g/dl (12.5-16.0); MEAN CELL VOLUME 95 fl (80.0-100.0); MEAN CORPUSCULAR HEMOGLOBIN 30 pg (27.0-31.0); MEAN CORPUSCULAR HGB CONC 32 g/dl (33.0-37.0); MEAN PLATELET VOLUME 10.7 fl (7.4-10.4); PLATELET COUNT 152 K/mm3 (130-400); RED BLOOD COUNT 3.48 M/mm3 (4.10-5.30); REDCELL DISTRIBUTION WIDTH-CV 13.1 % (11.5-14.5)
[2019-12-25 10:50] LABS: HEMATOCRIT 32.9 % (37.0-47.0)
[2019-12-25 10:52] LABS: BILIRUBIN,TOTAL 0.5 mg/dL (0.0-1.0); CALCIUM 9.1 mg/dL (8.4-10.2); CREATININE, serum 0.76 (0.52-1.25); POTASSIUM 3.5 mmol/L (3.4-5.0); TOTAL PROTEIN 7.5 gm/dL (6.4-8.2)
[2019-12-25 11:54] VITALS: BP 119/78; PULSE 66; TEMP 98.2
[2019-12-25 12:24] VITALS: BP 117/77; PULSE 63; TEMP 98.2
[2019-12-25 12:54] VITALS: BP 124/76; PULSE 60
[2019-12-25 13:24] VITALS: BP 121/73; PULSE 62
[2019-12-25 13:54] VITALS: BP 117/73; PULSE 61; TEMP 98.7
[2019-12-25 14:24] VITALS: BP 121/76; PULSE 64; TEMP 97.7
== END 2019-12-25 15:33 | disposition home or self-care (01) ==
LOC: EUO 10:01
PROVIDERS: Internal Medicine Gastroenterology
DX: K50.90 Crohn's disease, unspecified, without complications (principal); Z79.899 Other long term (current) drug therapy
CPT/HCPCS: J2920; J7050; Q5103

== ENCOUNTER 2020-02-19 10:06 | Outpatient (CLI) | payer BC ==
[~2020-02-19] VITALS: Ht 170.2 cm; Wt 91.3 kg
[2020-02-19 10:30] LABS: HEMOGLOBIN 10.9 g/dl (12.5-16.0); MEAN CELL VOLUME 94 fl (80.0-100.0); MEAN CORPUSCULAR HEMOGLOBIN 30 pg (27.0-31.0); MEAN CORPUSCULAR HGB CONC 32 g/dl (33.0-37.0); MEAN PLATELET VOLUME 10.3 fl (7.4-10.4); PLATELET COUNT 165 K/mm3 (130-400); RED BLOOD COUNT 3.59 M/mm3 (4.10-5.30); REDCELL DISTRIBUTION WIDTH-CV 13.2 % (11.5-14.5)
[2020-02-19 10:32] LABS: HEMATOCRIT 33.8 % (37.0-47.0)
[2020-02-19 10:44] LABS: ALBUMIN 4.2 gm/dL (3.5-5.0); BILIRUBIN,TOTAL 0.6 mg/dL (0.0-1.0); CALCIUM 9.3 mg/dL (8.4-10.2); CREATININE, serum 0.84 (0.52-1.25); TOTAL PROTEIN 7.9 gm/dL (6.4-8.2)
[2020-02-19 11:10] VITALS: BP 119/71; PULSE 62; TEMP 98
[2020-02-19 11:40] VITALS: BP 150/85; PULSE 61; TEMP 98
[2020-02-19 12:10] VITALS: BP 136/85; PULSE 58; TEMP 98
[2020-02-19 12:40] VITALS: BP 140/85; PULSE 51; TEMP 98
[2020-02-19 13:16] VITALS: BP 143/82; PULSE 62; TEMP 98
== END 2020-02-19 13:20 | disposition home or self-care (01) ==
LOC: EUO 10:06
PROVIDERS: Internal Medicine Gastroenterology
DX: K50.90 Crohn's disease, unspecified, without complications (principal); Z79.899 Other long term (current) drug therapy
CPT/HCPCS: J2920; J7050; Q5103

== ENCOUNTER 2020-04-15 10:15 | Outpatient (CLI) | payer BC ==
[2020-04-15 11:23] LABS: HEMOGLOBIN 10.8 g/dl (12.5-16.0); MEAN CELL VOLUME 93 fl (80.0-100.0); MEAN CORPUSCULAR HEMOGLOBIN 30 pg (27.0-31.0); MEAN CORPUSCULAR HGB CONC 32 g/dl (33.0-37.0); MEAN PLATELET VOLUME 10.9 fl (7.4-10.4); PLATELET COUNT 168 K/mm3 (130-400); RED BLOOD COUNT 3.62 M/mm3 (4.10-5.30); REDCELL DISTRIBUTION WIDTH-CV 13.5 % (11.5-14.5)
[2020-04-15 11:24] LABS: ALBUMIN 4.2 gm/dL (3.5-5.0); BILIRUBIN,TOTAL 0.7 mg/dL (0.0-1.0); CALCIUM 9.1 mg/dL (8.4-10.2); CREATININE, serum 0.74 (0.52-1.25); POTASSIUM 3.8 mmol/L (3.4-5.0); TOTAL PROTEIN 7.5 gm/dL (6.4-8.2)
[2020-04-15 11:31] LABS: HEMATOCRIT 33.5 % (37.0-47.0)
[2020-04-15 12:45] VITALS: BP 126/79; PULSE 64; TEMP 98.3
[2020-04-15 13:15] VITALS: BP 123/81; PULSE 73
[2020-04-15 13:45] VITALS: BP 137/82; PULSE 78
[2020-04-15 14:15] VITALS: BP 138/91; PULSE 63
[2020-04-15 14:45] VITALS: BP 146/84; PULSE 65; TEMP 98.5
== END 2020-04-15 15:39 | disposition home or self-care (01) ==
LOC: EUO 10:15
PROVIDERS: Internal Medicine Gastroenterology
DX: Z79.899 Other long term (current) drug therapy (principal)
CPT/HCPCS: J2930; J7050; Q5103

== ENCOUNTER 2020-06-10 09:39 | Outpatient (CLI) | payer BC ==
[~2020-06-10] VITALS: Ht 170.2 cm; Wt 94.3 kg
[2020-06-10 10:25] LABS: HEMOGLOBIN 10.4 g/dl (12.5-16.0); MEAN CELL VOLUME 94 fl (80.0-100.0); MEAN CORPUSCULAR HEMOGLOBIN 31 pg (27.0-31.0); MEAN CORPUSCULAR HGB CONC 33 g/dl (33.0-37.0); MEAN PLATELET VOLUME 10.6 fl (7.4-10.4); PLATELET COUNT 175 K/mm3 (130-400); RED BLOOD COUNT 3.36 M/mm3 (4.10-5.30); REDCELL DISTRIBUTION WIDTH-CV 13.5 % (11.5-14.5)
[2020-06-10 10:28] LABS: HEMATOCRIT 31.7 % (37.0-47.0)
[2020-06-10 10:32] LABS: ALBUMIN 4.1 gm/dL (3.5-5.0); BILIRUBIN,TOTAL 0.4 mg/dL (0.0-1.0); CALCIUM 8.9 mg/dL (8.4-10.2); CREATININE, serum 0.88 (0.52-1.25); POTASSIUM 4.1 mmol/L (3.4-5.0); TOTAL PROTEIN 7.2 gm/dL (6.4-8.2)
[2020-06-10 11:15] VITALS: BP 139/82; PULSE 68; TEMP 97.9
[2020-06-10 11:45] VITALS: BP 131/80; PULSE 62; TEMP 97.9
[2020-06-10 12:15] VITALS: BP 145/82; PULSE 72; TEMP 97.9
[2020-06-10 12:45] VITALS: BP 133/80; PULSE 71; TEMP 97.9
[2020-06-10 13:15] VITALS: BP 150/89; PULSE 65; TEMP 97.9
== END 2020-06-10 13:22 | disposition home or self-care (01) ==
LOC: EUO 09:39
PROVIDERS: Physician Assistant
DX: K50.90 Crohn's disease, unspecified, without complications (principal); Z79.899 Other long term (current) drug therapy
CPT/HCPCS: J2930; J7050; Q5103

== ENCOUNTER 2020-08-11 07:57 | Outpatient (CLI) | payer BC ==
[~2020-08-11] VITALS: Ht 170.2 cm; Wt 93.6 kg
[2020-08-11 08:40] VITALS: BP 150/80; PULSE 67; TEMP 97.6
[2020-08-11 08:46] LABS: BASO % 1.2 % (0.0-2.0); EOS # 0.1 (0.0-0.7); GRAN % 59.1 % (42.2-75.2); HEMOGLOBIN 10.9 g/dl (12.5-16.0); LYMPH # 0.9 (1.2-3.4); LYMPH % 27.6 % (20.0-51.0); MEAN CELL VOLUME 92 fl (80.0-100.0); MEAN CORPUSCULAR HEMOGLOBIN 30 pg (27.0-31.0); MEAN CORPUSCULAR HGB CONC 33 g/dl (33.0-37.0); MEAN PLATELET VOLUME 10.4 fl (7.4-10.4); MONO # 0.3 (0.1-0.6); MONO % 8.8 % (1.7-9.3); PLATELET COUNT 166 K/mm3 (130-400); RED BLOOD COUNT 3.61 M/mm3 (4.10-5.30); REDCELL DISTRIBUTION WIDTH-CV 12.7 % (11.5-14.5)
[2020-08-11 08:47] LABS: HEMATOCRIT 33.3 % (37.0-47.0)
[2020-08-11 08:52] LABS: ALBUMIN 4.2 gm/dL (3.5-5.0); BILIRUBIN,TOTAL 0.5 mg/dL (0.0-1.0); CALCIUM 9.1 mg/dL (8.4-10.2); CREATININE, serum 0.78 (0.52-1.25); POTASSIUM 3.9 mmol/L (3.4-5.0); TOTAL PROTEIN 7.3 gm/dL (6.4-8.2)
[2020-08-11 09:32] VITALS: BP 129/77; PULSE 74
[2020-08-11 10:00] VITALS: BP 147/95; PULSE 62
[2020-08-11 10:30] VITALS: BP 141/96; PULSE 59
[2020-08-11 11:00] VITALS: BP 132/69; PULSE 69
[2020-08-11 11:30] VITALS: BP 136/78; PULSE 69; TEMP 98
== END 2020-08-11 11:40 | disposition home or self-care (01) ==
LOC: EUO 07:57
PROVIDERS: Internal Medicine Gastroenterology
DX: K50.90 Crohn's disease, unspecified, without complications (principal); Z79.899 Other long term (current) drug therapy
CPT/HCPCS: J2930; J7050; Q5103

== ENCOUNTER 2020-10-06 09:56 | Outpatient (CLI) | payer BC ==
[~2020-10-06] VITALS: Ht 170.2 cm; Wt 92.2 kg
[2020-10-06 10:09] LABS: BASO # 0.1 (0.0-0.2); BASO % 1.3 % (0.0-2.0); EOS # 0.1 (0.0-0.7); EOS % 2.7 % (0-4.0); GRAN # 2.2 (1.4-6.5); GRAN % 58.6 % (42.2-75.2); HEMOGLOBIN 11.2 g/dl (12.5-16.0); LYMPH # 1.1 (1.2-3.4); LYMPH % 29.6 % (20.0-51.0); MEAN CELL VOLUME 94 fl (80.0-100.0); MEAN CORPUSCULAR HEMOGLOBIN 30 pg (27.0-31.0); MEAN CORPUSCULAR HGB CONC 32 g/dl (33.0-37.0); MEAN PLATELET VOLUME 10.4 fl (7.4-10.4); MONO # 0.3 (0.1-0.6); MONO % 7.5 % (1.7-9.3); PLATELET COUNT 192 K/mm3 (130-400); RED BLOOD COUNT 3.69 M/mm3 (4.10-5.30); REDCELL DISTRIBUTION WIDTH-CV 13.3 % (11.5-14.5)
[2020-10-06 10:12] LABS: HEMATOCRIT 34.6 % (37.0-47.0)
[2020-10-06 10:19] LABS: ALBUMIN 4.5 gm/dL (3.5-5.0); BILIRUBIN,TOTAL 0.6 mg/dL (0.0-1.0); CALCIUM 9.5 mg/dL (8.4-10.2); CREATININE, serum 0.81 (0.52-1.25); POTASSIUM 4.2 mmol/L (3.4-5.0); TOTAL PROTEIN 8.2 gm/dL (6.4-8.2)
[2020-10-06 10:31] VITALS: BP 112/65; PULSE 69; TEMP 97.7
[2020-10-06 11:00] VITALS: BP 119/62; PULSE 69
[2020-10-06 11:30] VITALS: BP 124/78; PULSE 62
[2020-10-06 12:00] VITALS: BP 143/87; PULSE 61
[2020-10-06 12:30] VITALS: BP 151/90; PULSE 69
[2020-10-06 13:00] VITALS: PULSE 68
== END 2020-10-06 13:15 | disposition home or self-care (01) ==
LOC: EUO 09:56
PROVIDERS: Internal Medicine Gastroenterology
DX: K50.90 Crohn's disease, unspecified, without complications (principal); Z79.899 Other long term (current) drug therapy
CPT/HCPCS: J2930; J7050; Q5103

== ENCOUNTER 2020-12-01 10:25 | Outpatient (CLI) | payer BC ==
[2020-12-01 10:51] LABS: HEMATOCRIT 31.9 % (37.0-47.0); HEMOGLOBIN 10.3 g/dl (12.5-16.0); MEAN CELL VOLUME 94 fl (80.0-100.0); MEAN CORPUSCULAR HEMOGLOBIN 30 pg (27.0-31.0); MEAN CORPUSCULAR HGB CONC 32 g/dl (33.0-37.0); MEAN PLATELET VOLUME 10.6 fl (7.4-10.4); PLATELET COUNT 182 K/mm3 (130-400); RED BLOOD COUNT 3.39 M/mm3 (4.10-5.30)
[2020-12-01 11:00] LABS: ALBUMIN 4.2 gm/dL (3.5-5.0); BILIRUBIN,TOTAL 0.4 mg/dL (0.0-1.0); CALCIUM 9.1 mg/dL (8.4-10.2); CREATININE, serum 0.72 (0.52-1.25); POTASSIUM 3.9 mmol/L (3.4-5.0); TOTAL PROTEIN 7.7 gm/dL (6.4-8.2)
[2020-12-01 12:15] VITALS: BP 121/82; PULSE 60; TEMP 98.4
[2020-12-01 12:45] VITALS: BP 132/81; PULSE 60
[2020-12-01 13:15] VITALS: BP 143/88; PULSE 60
[2020-12-01 13:45] VITALS: BP 146/92; PULSE 62
[2020-12-01 14:15] VITALS: BP 104/85; PULSE 66
== END 2020-12-01 17:30 | disposition home or self-care (01) ==
LOC: EUO 10:25
PROVIDERS: Internal Medicine Gastroenterology
DX: K50.90 Crohn's disease, unspecified, without complications (principal)
CPT/HCPCS: J2930; J7050; Q5103

== ENCOUNTER 2021-01-26 09:43 | Outpatient (CLI) | payer BC ==
[~2021-01-26] VITALS: Ht 170.2 cm; Wt 89.5 kg
[2021-01-26 10:15] LABS: HEMOGLOBIN 10.8 g/dl (12.5-16.0); MEAN CELL VOLUME 93 fl (80.0-100.0); MEAN CORPUSCULAR HEMOGLOBIN 30 pg (27.0-31.0); MEAN CORPUSCULAR HGB CONC 33 g/dl (33.0-37.0); MEAN PLATELET VOLUME 10.9 fl (7.4-10.4); PLATELET COUNT 169 K/mm3 (130-400); RED BLOOD COUNT 3.56 M/mm3 (4.10-5.30); REDCELL DISTRIBUTION WIDTH-CV 12.9 % (11.5-14.5)
[2021-01-26 10:16] LABS: HEMATOCRIT 33.2 % (37.0-47.0)
[2021-01-26 10:23] LABS: ALBUMIN 4.4 gm/dL (3.5-5.0); BILIRUBIN,TOTAL 0.5 mg/dL (0.0-1.0); CALCIUM 9.3 mg/dL (8.4-10.2); CREATININE, serum 0.77 (0.52-1.25); POTASSIUM 3.9 mmol/L (3.4-5.0); TOTAL PROTEIN 7.6 gm/dL (6.4-8.2)
[2021-01-26 11:54] VITALS: BP 121/70; PULSE 65; TEMP 97.9
[2021-01-26 12:30] VITALS: BP 129/71; PULSE 84
[2021-01-26 13:00] VITALS: BP 138/78; PULSE 58
[2021-01-26 13:30] VITALS: BP 152/82; PULSE 59
[2021-01-26 13:57] VITALS: BP 129/81; PULSE 64
== END 2021-01-26 15:33 | disposition home or self-care (01) ==
LOC: EUO 09:43
PROVIDERS: Internal Medicine Gastroenterology
DX: K50.90 Crohn's disease, unspecified, without complications (principal); Z79.899 Other long term (current) drug therapy
CPT/HCPCS: J2930; J7050; Q5103

== ENCOUNTER 2021-03-23 09:52 | Outpatient (CLI) | payer BC ==
[~2021-03-23] VITALS: Ht 170.2 cm; Wt 90.1 kg
[2021-03-23 10:27] LABS: BASO # 0.1 (0.0-0.2); BASO % 1.5 % (0.0-2.0); EOS # 0.1 (0.0-0.7); EOS % 3.1 % (0-4.0); GRAN # 1.8 (1.4-6.5); GRAN % 53.5 % (42.2-75.2); HEMOGLOBIN 10.4 g/dl (12.5-16.0); LYMPH % 30.9 % (20.0-51.0); MEAN CELL VOLUME 93 fl (80.0-100.0); MEAN CORPUSCULAR HEMOGLOBIN 30 pg (27.0-31.0); MEAN CORPUSCULAR HGB CONC 33 g/dl (33.0-37.0); MEAN PLATELET VOLUME 10.8 fl (7.4-10.4); MONO # 0.4 (0.1-0.6); MONO % 10.7 % (1.7-9.3); PLATELET COUNT 141 K/mm3 (130-400); RED BLOOD COUNT 3.43 M/mm3 (4.10-5.30); REDCELL DISTRIBUTION WIDTH-CV 12.8 % (11.5-14.5)
[2021-03-23 10:30] VITALS: BP 108/69; PULSE 74; TEMP 98.9
[2021-03-23 10:39] LABS: ALBUMIN 4.1 gm/dL (3.5-5.0); BILIRUBIN,TOTAL 0.4 mg/dL (0.0-1.0); CALCIUM 8.9 mg/dL (8.4-10.2); CREATININE, serum 0.86 (0.52-1.25); POTASSIUM 3.9 mmol/L (3.4-5.0); TOTAL PROTEIN 7.1 gm/dL (6.4-8.2)
[2021-03-23 10:40] LABS: HEMATOCRIT 31.8 % (37.0-47.0)
[2021-03-23 11:50] VITALS: BP 123/88; PULSE 55
[2021-03-23 12:30] VITALS: BP 144/86; PULSE 56
[2021-03-23 13:00] VITALS: BP 158/85; PULSE 58
[2021-03-23 13:30] VITALS: BP 161/95; PULSE 59
== END 2021-03-23 13:47 | disposition home or self-care (01) ==
LOC: EUO 09:52
PROVIDERS: Internal Medicine Gastroenterology
DX: K50.90 Crohn's disease, unspecified, without complications (principal); Z79.899 Other long term (current) drug therapy
CPT/HCPCS: J2930; J7050; Q5103

== ENCOUNTER 2021-06-22 10:00 | Outpatient (RCR) | payer BC ==
[2021-05-25 10:35] LABS: BASO % 1.2 % (0.0-2.0); EOS # 0.1 K/mm3 (0.0-0.7); EOS % 2.1 % (0-4.0); GRAN # 1.8 K/mm3 (1.4-6.5); GRAN % 53.5 % (42.2-75.2); HEMOGLOBIN 10.4 g/dl (12.5-16.0); LYMPH # 1.1 K/mm3 (1.2-3.4); LYMPH % 34.6 % (20.0-51.0); MEAN CELL VOLUME 92 fl (80.0-100.0); MEAN CORPUSCULAR HEMOGLOBIN 31 pg (27.0-31.0); MEAN CORPUSCULAR HGB CONC 33 g/dl (33.0-37.0); MEAN PLATELET VOLUME 10.3 fl (7.4-10.4); MONO # 0.3 K/mm3 (0.1-0.6); MONO % 8.3 % (1.7-9.3); PLATELET COUNT 142 K/mm3 (130-400); RED BLOOD COUNT 3.39 M/mm3 (4.10-5.30); REDCELL DISTRIBUTION WIDTH-CV 13.2 % (11.5-14.5)
[2021-05-25 10:37] LABS: HEMATOCRIT 31.1 % (37.0-47.0)
[2021-05-25 10:46] LABS: ALBUMIN 4.1 gm/dL (3.5-5.0); ALKALINE PHOSPHATASE 64 U/L (40-150); ANION GAP 8 mmol/L (7-16); AST,SGOT 14 U/L (5-34); BILIRUBIN,TOTAL 0.5 mg/dL (0.2-1.2); BLOOD UREA NITROGEN 17 mg/dL (10-20); CALCIUM 9.1 mg/dL (8.4-10.2); CARBON DIOXIDE 25 mmol/L (22-29); CHLORIDE 110 mmol/L (98-107); CREATININE, serum 0.81 mg/dL (0.57-1.11); GLUCOSE 85 mg/dL (70-99); POTASSIUM 3.9 mmol/L (3.5-4.5); SODIUM 143 mmol/L (136-145); TOTAL PROTEIN 7.1 gm/dL (6.2-8.1)
[2021-05-25 10:47] LABS: ALANINE AMINOTRANSFERASE < 6 U/L (0-55)
--- NOTE | 2021-05-25 11:06 | NUR ---
I noted prior authorization needs update. I called and spoke to Melodie at Dr. Knox's office who stated request for PA had been submitted, but there had been no response as of yet. We will pencil pt in for next monday at 1000 with plan to reschedule again depending on approval. Melodie did say pt's labs from today should be fine for next week if pt has been well.
[~2021-06-22] VITALS: Ht 170.2 cm; Wt 89.6 kg
[2021-06-22 09:56] LABS: BASO # 0.1 K/mm3 (0.0-0.2); BASO % 1.3 % (0.0-2.0); EOS # 0.1 K/mm3 (0.0-0.7); EOS % 2.1 % (0.0-4.0); GRAN # 2.5 K/mm3 (1.4-6.5); GRAN % 64.9 % (42.2-75.2); HEMOGLOBIN 10.7 g/dl (12.5-16.0); LYMPH # 0.9 K/mm3 (1.2-3.4); LYMPH % 23.8 % (20.0-51.0); MEAN CELL VOLUME 92 fl (80.0-100.0); MEAN CORPUSCULAR HEMOGLOBIN 30 pg (27-31); MEAN CORPUSCULAR HGB CONC 33 g/dl (33.0-37.0); MEAN PLATELET VOLUME 10.3 fl (7.4-10.4); MONO # 0.3 K/mm3 (0.1-0.6); MONO % 7.6 % (1.7-9.3); PLATELET COUNT 172 K/mm3 (130-400); RED BLOOD COUNT 3.53 M/mm3 (4.10-5.30); REDCELL DISTRIBUTION WIDTH-CV 13.4 % (11.5-14.5)
[2021-06-22 09:58] LABS: HEMATOCRIT 32.5 % (37.0-47.0)
[2021-06-22 10:16] LABS: ALBUMIN 4.2 gm/dL (3.5-5.0); BILIRUBIN,TOTAL 0.5 mg/dL (0.2-1.2); CALCIUM 9.1 mg/dL (8.4-10.2); CREATININE, serum 0.9 mg/dL (0.57-1.11); TOTAL PROTEIN 7.4 gm/dL (6.2-8.1)
[2021-06-22 10:46] VITALS: BP 117/72; PULSE 68; TEMP 97.8
[2021-06-22 11:15] VITALS: BP 118/73; PULSE 64
[2021-06-22 11:45] VITALS: BP 125/78; PULSE 62
[2021-06-22 12:15] VITALS: BP 142/86; PULSE 66
[2021-06-22 12:45] VITALS: BP 134/79; PULSE 68
== END 2021-06-22 13:00 | disposition still patient (30) ==
LOC: EUO 10:00
PROVIDERS: Internal Medicine Gastroenterology
DX: K50.90 Crohn's disease, unspecified, without complications (principal); Z79.899 Other long term (current) drug therapy
CPT/HCPCS: J2930; J7050; Q5103

== ENCOUNTER 2021-08-17 09:30 | Outpatient (CLI) | payer BC ==
[~2021-08-17] VITALS: Ht 170.2 cm; Wt 91.1 kg
[2021-08-17 09:58] LABS: BASO # 0.1 K/mm3 (0.0-0.2); BASO % 1.3 % (0.0-2.0); EOS # 0.1 K/mm3 (0.0-0.7); EOS % 1.5 % (0.0-4.0); GRAN # 2.4 K/mm3 (1.4-6.5); GRAN % 60.3 % (42.2-75.2); HEMOGLOBIN 10.7 g/dl (12.5-16.0); LYMPH # 1.1 K/mm3 (1.2-3.4); LYMPH % 28.5 % (20.0-51.0); MEAN CELL VOLUME 92 fl (80.0-100.0); MEAN CORPUSCULAR HEMOGLOBIN 31 pg (27-31); MEAN CORPUSCULAR HGB CONC 33 g/dl (33.0-37.0); MEAN PLATELET VOLUME 10.7 fl (7.4-10.4); MONO # 0.3 K/mm3 (0.1-0.6); MONO % 8.1 % (1.7-9.3); PLATELET COUNT 156 K/mm3 (130-400); RED BLOOD COUNT 3.51 M/mm3 (4.10-5.30); REDCELL DISTRIBUTION WIDTH-CV 12.9 % (11.5-14.5)
[2021-08-17 10:01] LABS: HEMATOCRIT 32.4 % (37.0-47.0)
[2021-08-17 10:15] LABS: ALBUMIN 4.1 gm/dL (3.5-5.0); BILIRUBIN,TOTAL 0.5 mg/dL (0.2-1.2); CALCIUM 9.1 mg/dL (8.4-10.2); CREATININE, serum 0.86 mg/dL (0.57-1.11); TOTAL PROTEIN 7.1 gm/dL (6.2-8.1)
[2021-08-17 11:17] VITALS: BP 123/75; PULSE 60; TEMP 97.7
[2021-08-17 11:30] VITALS: BP 128/80; PULSE 62
[2021-08-17 12:00] VITALS: BP 116/70; PULSE 59
[2021-08-17 12:30] VITALS: BP 129/77; PULSE 61
[2021-08-17 13:00] VITALS: BP 134/78; PULSE 61
== END 2021-08-17 14:08 ==
LOC: EUO 09:30
PROVIDERS: Internal Medicine Gastroenterology
DX: K50.919 Crohn's disease, unspecified, with unspecified complications (principal)
CPT/HCPCS: J1200; J2930; J7050; Q5103

== ENCOUNTER 2021-10-12 09:46 | Outpatient (CLI) | payer BC ==
[2021-10-12 10:11] LABS: BASO # 0.1 K/mm3 (0.0-0.2); BASO % 1.5 % (0.0-2.0); EOS # 0.1 K/mm3 (0.0-0.7); EOS % 2.7 % (0.0-4.0); GRAN # 2.6 K/mm3 (1.4-6.5); GRAN % 64.1 % (42.2-75.2); LYMPH % 24.2 % (20.0-51.0); MEAN CELL VOLUME 92 fl (80.0-100.0); MEAN CORPUSCULAR HEMOGLOBIN 31 pg (27-31); MEAN CORPUSCULAR HGB CONC 33 g/dl (33.0-37.0); MEAN PLATELET VOLUME 10.6 fl (7.4-10.4); MONO # 0.3 K/mm3 (0.1-0.6); MONO % 7.3 % (1.7-9.3); PLATELET COUNT 161 K/mm3 (130-400); REDCELL DISTRIBUTION WIDTH-CV 12.6 % (11.5-14.5)
[2021-10-12 10:28] LABS: ALBUMIN 4.1 gm/dL (3.5-5.0); BILIRUBIN,TOTAL 0.8 mg/dL (0.2-1.2); CREATININE, serum 0.95 mg/dL (0.57-1.11); POTASSIUM 4.1 mmol/L (3.5-4.5); TOTAL PROTEIN 7.2 gm/dL (6.2-8.1)
[2021-10-12 10:52] VITALS: BP 118/86; PULSE 67; TEMP 98.6
[2021-10-12 11:30] VITALS: BP 133/79; PULSE 58
[2021-10-12 12:00] VITALS: BP 124/78; PULSE 64
[2021-10-12 12:30] VITALS: BP 132/84; PULSE 64
[2021-10-12 13:00] VITALS: BP 134/82; PULSE 74; TEMP 98.7
== END 2021-10-12 13:11 | disposition home or self-care (01) ==
LOC: EUO 09:46
PROVIDERS: Psychiatry & Neurology Neurology
DX: K50.919 Crohn's disease, unspecified, with unspecified complications (principal)
CPT/HCPCS: J2930; J7050; Q5103

== ENCOUNTER 2021-12-07 09:25 | Outpatient (CLI) | payer BC ==
[~2021-12-07] VITALS: Ht 170.2 cm; Wt 91.6 kg
[2021-12-07] VITALS (7 sets, daily range): BP systolic 129–160; BP diastolic 77–89; PULSE 56–68; TEMP 97.4–98.6
[2021-12-07 10:02] LABS: BASO # 0.1 K/mm3 (0.0-0.2); BASO % 1.4 % (0.0-2.0); EOS # 0.1 K/mm3 (0.0-0.7); EOS % 2.9 % (0.0-4.0); GRAN # 2.1 K/mm3 (1.4-6.5); GRAN % 60.6 % (42.2-75.2); HEMOGLOBIN 10.9 g/dl (12.5-16.0); LYMPH # 0.9 K/mm3 (1.2-3.4); LYMPH % 25.9 % (20.0-51.0); MEAN CELL VOLUME 92 fl (80.0-100.0); MEAN CORPUSCULAR HEMOGLOBIN 30 pg (27-31); MEAN CORPUSCULAR HGB CONC 33 g/dl (33.0-37.0); MEAN PLATELET VOLUME 10.8 fl (7.4-10.4); MONO # 0.3 K/mm3 (0.1-0.6); MONO % 9.2 % (1.7-9.3); PLATELET COUNT 151 K/mm3 (130-400); REDCELL DISTRIBUTION WIDTH-CV 12.5 % (11.5-14.5)
[2021-12-07 10:04] LABS: HEMATOCRIT 33.2 % (37.0-47.0)
[2021-12-07 10:20] LABS: ALBUMIN 3.8 gm/dL (3.5-5.0); ALKALINE PHOSPHATASE 74 U/L (40-150); ANION GAP 11 mmol/L (7-16); AST,SGOT 15 U/L (5-34); BILIRUBIN,TOTAL 0.6 mg/dL (0.2-1.2); BLOOD UREA NITROGEN 20 mg/dL (10-20); CALCIUM 9.4 mg/dL (8.4-10.2); CARBON DIOXIDE 26 mmol/L (22-29); CHLORIDE 108 mmol/L (98-107); CREATININE, serum 0.84 mg/dL (0.57-1.11); GLUCOSE 103 mg/dL (70-99); POTASSIUM 3.6 mmol/L (3.5-4.5); SODIUM 145 mmol/L (136-145); TOTAL PROTEIN 6.9 gm/dL (6.2-8.1)
[2021-12-07 10:23] LABS: ALANINE AMINOTRANSFERASE < 6 U/L (0-55)
== END 2021-12-07 13:36 ==
LOC: EUO 09:25
PROVIDERS: Internal Medicine Gastroenterology
DX: K50.919 Crohn's disease, unspecified, with unspecified complications (principal)
CPT/HCPCS: J2930; J7050; Q5103

== ENCOUNTER 2022-02-01 09:57 | Outpatient (CLI) | payer BC ==
[~2022-02-01] VITALS: Ht 170.2 cm; Wt 90.8 kg
[2022-02-01 10:34] LABS: BASO # 0.1 K/mm3 (0.0-0.2); BASO % 1.8 % (0.0-2.0); EOS # 0.1 K/mm3 (0.0-0.7); EOS % 3.8 % (0.0-4.0); GRAN # 1.8 K/mm3 (1.4-6.5); GRAN % 52.6 % (42.2-75.2); HEMOGLOBIN 11.2 g/dl (12.5-16.0); LYMPH # 1.1 K/mm3 (1.2-3.4); LYMPH % 32.2 % (20.0-51.0); MEAN CELL VOLUME 90 fl (80.0-100.0); MEAN CORPUSCULAR HEMOGLOBIN 30 pg (27-31); MEAN CORPUSCULAR HGB CONC 33 g/dl (33.0-37.0); MEAN PLATELET VOLUME 10.3 fl (7.4-10.4); MONO # 0.3 K/mm3 (0.1-0.6); MONO % 9.6 % (1.7-9.3); PLATELET COUNT 170 K/mm3 (130-400); RED BLOOD COUNT 3.77 M/mm3 (4.10-5.30)
[2022-02-01 10:56] LABS: ALBUMIN 3.9 gm/dL (3.5-5.0); BILIRUBIN,TOTAL 0.8 mg/dL (0.2-1.2); CALCIUM 9.2 mg/dL (8.4-10.2); CREATININE, serum 0.9 mg/dL (0.57-1.11); POTASSIUM 3.8 mmol/L (3.5-4.5); TOTAL PROTEIN 7.2 gm/dL (6.2-8.1)
[2022-02-01 12:23] VITALS: BP 135/85; PULSE 64; TEMP 98.4
[2022-02-01 12:45] VITALS: BP 138/89; PULSE 65
[2022-02-01 13:00] VITALS: BP 159/89; PULSE 58
--- NOTE | 2022-02-01 13:29 | NUR ---
Report to Rnean Lancaster.
[2022-02-01 13:30] VITALS: BP 168/93; PULSE 59
== END 2022-02-01 15:05 ==
LOC: EUO 09:57
PROVIDERS: Internal Medicine Gastroenterology
DX: K50.919 Crohn's disease, unspecified, with unspecified complications (principal)
CPT/HCPCS: J2930; J7050; Q5103

== ENCOUNTER 2022-03-29 09:53 | Outpatient (CLI) | payer BC ==
[~2022-03-29] VITALS: Ht 170.2 cm; Wt 91.9 kg
[2022-03-29 10:29] LABS: BASO # 0.1 K/mm3 (0.0-0.2); BASO % 1.7 % (0.0-2.0); EOS # 0.1 K/mm3 (0.0-0.7); GRAN # 1.9 K/mm3 (1.4-6.5); HEMOGLOBIN 11.1 g/dl (12.5-16.0); LYMPH # 1.1 K/mm3 (1.2-3.4); LYMPH % 31.8 % (20.0-51.0); MEAN CELL VOLUME 92 fl (80.0-100.0); MEAN CORPUSCULAR HEMOGLOBIN 30 pg (27-31); MEAN CORPUSCULAR HGB CONC 33 g/dl (33.0-37.0); MEAN PLATELET VOLUME 10.4 fl (7.4-10.4); MONO # 0.3 K/mm3 (0.1-0.6); MONO % 9.2 % (1.7-9.3); PLATELET COUNT 165 K/mm3 (130-400); RED BLOOD COUNT 3.66 M/mm3 (4.10-5.30); REDCELL DISTRIBUTION WIDTH-CV 13.2 % (11.5-14.5)
[2022-03-29 10:33] LABS: HEMATOCRIT 33.7 % (37.0-47.0)
[2022-03-29 10:49] LABS: ALBUMIN 3.7 gm/dL (3.5-5.0); BILIRUBIN,TOTAL 0.7 mg/dL (0.2-1.2); CALCIUM 8.9 mg/dL (8.4-10.2); CREATININE, serum 0.85 mg/dL (0.57-1.11); POTASSIUM 3.6 mmol/L (3.5-4.5); TOTAL PROTEIN 6.8 gm/dL (6.2-8.1)
[2022-03-29 11:12] VITALS: BP 137/80; PULSE 63; TEMP 98.7
[2022-03-29 11:27] VITALS: BP 143/84; PULSE 61
[2022-03-29 11:57] VITALS: BP 136/60; PULSE 57
[2022-03-29 12:27] VITALS: BP 170/91; PULSE 60
[2022-03-29 12:57] VITALS: BP 156/84; PULSE 66
[2022-03-29 13:27] VITALS: BP 150/79; PULSE 65
== END 2022-03-29 18:58 | disposition home or self-care (01) ==
LOC: EUO 09:53
PROVIDERS: Internal Medicine Gastroenterology
DX: K50.919 Crohn's disease, unspecified, with unspecified complications (principal)
CPT/HCPCS: J2930; J7050; Q5103

== ENCOUNTER 2022-09-14 09:26 | Outpatient (CLI) | payer BC ==
[~2022-09-14] VITALS: Ht 170.2 cm; Wt 91.6 kg
[2022-09-14 09:59] LABS: HEMOGLOBIN 11.4 g/dl (12.5-16.0); MEAN CELL VOLUME 91 fl (80.0-100.0); MEAN CORPUSCULAR HEMOGLOBIN 31 pg (27-31); MEAN CORPUSCULAR HGB CONC 34 g/dl (33.0-37.0); MEAN PLATELET VOLUME 11.2 fl (7.4-10.4); PLATELET COUNT 145 K/mm3 (130-400); RED BLOOD COUNT 3.72 M/mm3 (4.10-5.30); REDCELL DISTRIBUTION WIDTH-CV 13.4 % (11.5-14.5)
[2022-09-14 10:20] VITALS: BP 147/76; PULSE 70; TEMP 98.6
[2022-09-14 10:21] LABS: ALBUMIN 4.2 gm/dL (3.4-4.8); BILIRUBIN,TOTAL 0.5 mg/dL (0.2-1.2); CALCIUM 9.3 mg/dL (8.4-10.2); CREATININE, serum 0.81 mg/dL (0.57-1.11); POTASSIUM 3.9 mmol/L (3.5-4.5); TOTAL PROTEIN 7.2 gm/dL (6.2-8.1)
[2022-09-14 11:20] VITALS: BP 154/83; PULSE 60; TEMP 98.6
[2022-09-14 11:50] VITALS: BP 158/85; PULSE 60
[2022-09-14 12:20] VITALS: BP 126/82; PULSE 66
[2022-09-14 12:50] VITALS: BP 162/97; PULSE 72
== END 2022-09-14 15:44 | disposition home or self-care (01) ==
LOC: EUO 09:26
PROVIDERS: Internal Medicine Gastroenterology
DX: K50.919 Crohn's disease, unspecified, with unspecified complications (principal); Z79.899 Other long term (current) drug therapy
CPT/HCPCS: J2930; J7050; Q5103

== ENCOUNTER 2022-11-09 09:27 | Outpatient (CLI) | payer BC ==
[~2022-11-09] VITALS: Ht 170.2 cm; Wt 88.0 kg
[2022-11-09 10:04] LABS: BASO # 0.1 K/mm3 (0.0-0.2); BASO % 1.9 % (0.0-2.0); EOS # 0.1 K/mm3 (0.0-0.7); EOS % 3.2 % (0.0-4.0); GRAN % 53.2 % (42.2-75.2); HEMOGLOBIN 11.4 g/dl (12.5-16.0); LYMPH # 1.3 K/mm3 (1.2-3.4); LYMPH % 33.4 % (20.0-51.0); MEAN CELL VOLUME 93 fl (80.0-100.0); MEAN CORPUSCULAR HEMOGLOBIN 31 pg (27-31); MEAN CORPUSCULAR HGB CONC 33 g/dl (33.0-37.0); MEAN PLATELET VOLUME 10.5 fl (7.4-10.4); MONO # 0.3 K/mm3 (0.1-0.6); PLATELET COUNT 168 K/mm3 (130-400); RED BLOOD COUNT 3.68 M/mm3 (4.10-5.30); REDCELL DISTRIBUTION WIDTH-CV 12.8 % (11.5-14.5)
[2022-11-09 10:05] LABS: HEMATOCRIT 34.3 % (37.0-47.0)
[2022-11-09 10:25] LABS: ALBUMIN 4.3 gm/dL (3.4-4.8); BILIRUBIN,TOTAL 0.5 mg/dL (0.2-1.2); CALCIUM 9.5 mg/dL (8.4-10.2); POTASSIUM 4.5 mmol/L (3.5-4.5); TOTAL PROTEIN 7.5 gm/dL (6.2-8.1)
[2022-11-09 10:55] VITALS: BP 110/75; PULSE 74; TEMP 98.7
[2022-11-09 11:10] VITALS: BP 121/89; PULSE 74
[2022-11-09 11:25] VITALS: BP 129/80; PULSE 71
[2022-11-09 11:45] VITALS: BP 131/77; PULSE 63
[2022-11-09 12:15] VITALS: BP 144/87; PULSE 68; TEMP 98.6
[2022-11-09 12:55] VITALS: BP 130/78; PULSE 68; TEMP 98
== END 2022-11-09 13:10 | disposition home or self-care (01) ==
LOC: EUO 09:27
PROVIDERS: Internal Medicine Gastroenterology
DX: K50.919 Crohn's disease, unspecified, with unspecified complications (principal)
CPT/HCPCS: J2930; J7050; Q5103

== ENCOUNTER 2023-03-14 10:00 | Outpatient (RCR) | payer BC ==
[2023-03-07 09:38] LABS: EOS # 0.1 K/mm3 (0.0-0.7); EOS % 2.2 % (0.0-4.0); GRAN # 1.7 K/mm3 (1.4-6.5); GRAN % 53.2 % (42.2-75.2); LYMPH % 32.1 % (20.0-51.0); MEAN CELL VOLUME 96 fl (80.0-100.0); MEAN CORPUSCULAR HEMOGLOBIN 31 pg (27-31); MEAN CORPUSCULAR HGB CONC 32 g/dl (33.0-37.0); MEAN PLATELET VOLUME 10.2 fl (7.4-10.4); MONO # 0.4 K/mm3 (0.1-0.6); MONO % 11.2 % (1.7-9.3); PLATELET COUNT 193 K/mm3 (130-400); RED BLOOD COUNT 3.56 M/mm3 (4.10-5.30)
[2023-03-07 09:52] LABS: ALBUMIN 4.1 gm/dL (3.4-4.8); BILIRUBIN,TOTAL 0.6 mg/dL (0.2-1.2); CALCIUM 9.2 mg/dL (8.4-10.2); CREATININE, serum 0.98 mg/dL (0.57-1.11); POTASSIUM 3.8 mmol/L (3.5-4.5); TOTAL PROTEIN 7.3 gm/dL (6.2-8.1)
[2023-03-07 09:59] VITALS: BP 116/71; PULSE 78; TEMP 98.6
[~2023-03-14] VITALS: Ht 170.2 cm; Wt 89.1 kg
[2023-03-14 10:00] LABS: BASO % 0.7 % (0.0-2.0); EOS # 0.1 K/mm3 (0.0-0.7); EOS % 2.6 % (0.0-4.0); GRAN # 1.5 K/mm3 (1.4-6.5); GRAN % 54.9 % (42.2-75.2); LYMPH # 0.8 K/mm3 (1.2-3.4); LYMPH % 30.4 % (20.0-51.0); MEAN CELL VOLUME 96 fl (80.0-100.0); MEAN CORPUSCULAR HEMOGLOBIN 31 pg (27-31); MEAN CORPUSCULAR HGB CONC 32 g/dl (33.0-37.0); MEAN PLATELET VOLUME 10.8 fl (7.4-10.4); MONO # 0.3 K/mm3 (0.1-0.6); PLATELET COUNT 148 K/mm3 (130-400); RED BLOOD COUNT 3.27 M/mm3 (4.10-5.30)
[~2023-03-14 10:00] MED LIST changes: +VITAMIN D 50,1.25 MG PO
[2023-03-14 10:04] LABS: HEMATOCRIT 31.3 % (37.0-47.0)
[2023-03-14 10:18] LABS: ALBUMIN 3.8 gm/dL (3.4-4.8); BILIRUBIN,TOTAL 0.5 mg/dL (0.2-1.2); CALCIUM 8.7 mg/dL (8.4-10.2); CREATININE, serum 0.83 mg/dL (0.57-1.11); TOTAL PROTEIN 6.8 gm/dL (6.2-8.1)
[2023-03-14 10:55] VITALS: BP 139/82; PULSE 64; TEMP 97.7
[2023-03-14 11:15] VITALS: BP 147/89; PULSE 66
[2023-03-14 11:45] VITALS: BP 140/77; PULSE 61
[2023-03-14 12:15] VITALS: BP 131/81; PULSE 69
[2023-03-14 12:45] VITALS: BP 147/84; PULSE 68
[2023-03-14 13:00] VITALS: BP 149/88; PULSE 62
== END 2023-03-14 13:13 ==
LOC: EUO 10:00
PROVIDERS: Internal Medicine Gastroenterology
DX: K50.919 Crohn's disease, unspecified, with unspecified complications (principal)
CPT/HCPCS: J1200; J2930; J7050; Q5103

== ENCOUNTER 2023-07-18 08:33 | Outpatient (CLI) | payer BC ==
[~2023-07-18] VITALS: Ht 170.2 cm; Wt 92.5 kg
[~2023-07-18 08:33] MED LIST changes: +INFLECTRA100 MG IV
[2023-07-18 09:15] VITALS: BP 145/87; PULSE 95; TEMP 98.6
[2023-07-18 09:26] LABS: BASO % 1.2 % (0.0-2.0); EOS # 0.1 K/mm3 (0.0-0.7); EOS % 1.5 % (0.0-4.0); GRAN # 1.9 K/mm3 (1.4-6.5); GRAN % 54.4 % (42.2-75.2); LYMPH # 1.2 K/mm3 (1.2-3.4); LYMPH % 34.4 % (20.0-51.0); MEAN CELL VOLUME 96 fl (80.0-100.0); MEAN CORPUSCULAR HEMOGLOBIN 31 pg (27-31); MEAN CORPUSCULAR HGB CONC 32 g/dl (33.0-37.0); MEAN PLATELET VOLUME 10.8 fl (7.4-10.4); MONO # 0.3 K/mm3 (0.1-0.6); MONO % 8.2 % (1.7-9.3); PLATELET COUNT 151 K/mm3 (130-400); RED BLOOD COUNT 3.61 M/mm3 (4.10-5.30); REDCELL DISTRIBUTION WIDTH-CV 12.8 % (11.5-14.5)
[2023-07-18 09:30] LABS: HEMATOCRIT 34.5 % (37.0-47.0)
[2023-07-18 09:37] LABS: ALBUMIN 3.9 gm/dL (3.4-4.8); BILIRUBIN,TOTAL 0.5 mg/dL (0.2-1.2); CALCIUM 9.2 mg/dL (8.4-10.2); CREATININE, serum 0.88 mg/dL (0.57-1.11); POTASSIUM 4.1 mmol/L (3.5-4.5); TOTAL PROTEIN 7.4 gm/dL (6.2-8.1)
[2023-07-18] MEDS ORDERED: methylPREDNISolone Sod Succ 125 MG/2 ML VIAL IV ONE (10:30)
[2023-07-18] MEDS ORDERED: INFLIXIMAB DYYB IV ONE (10:30)
[2023-07-18] MEDS ORDERED: Acetaminophen 500 MG TAB PO ONE (10:30)
[2023-07-18] MEDS ORDERED: diphenhydrAMINE 50 MG/ML 1 ML VIAL IV ONE (10:30)
[2023-07-18] MEDS ORDERED: NS IV ONE (10:30)
[2023-07-18 10:45] VITALS: BP 136/83; PULSE 67
[2023-07-18 11:15] VITALS: BP 149/89; PULSE 63
[2023-07-18 11:45] VITALS: BP 153/89; PULSE 61
[2023-07-18 12:00] VITALS: BP 149/83; PULSE 63
[2023-07-18 12:25] VITALS: BP 153/80; PULSE 69
--- NOTE | 2023-07-18 12:59 | NUR ---
pt tolerated infusion well and ambulated independently to main lobby after infusion. IV discontinued and VS remained within normal limits. pt free from acute concerns and complaints upon discharge.
== END 2023-07-18 13:01 | disposition home or self-care (01) ==
LOC: EUO 08:33
PROVIDERS: Internal Medicine Gastroenterology
DX: K50.919 Crohn's disease, unspecified, with unspecified complications (principal)
CPT/HCPCS: J2930; J7050; Q5103

== ENCOUNTER 2023-09-05 09:31 | Outpatient (CLI) | payer BC ==
[~2023-09-05] VITALS: Ht 170.2 cm; Wt 91.2 kg
[2023-09-05 10:23] LABS: BASO % 1.4 % (0.0-2.0); EOS % 1.4 % (0.0-4.0); GRAN # 1.5 K/mm3 (1.4-6.5); GRAN % 49.4 % (42.2-75.2); HEMOGLOBIN 10.8 g/dl (12.5-16.0); LYMPH # 1.1 K/mm3 (1.2-3.4); LYMPH % 36.2 % (20.0-51.0); MEAN CELL VOLUME 92 fl (80.0-100.0); MEAN CORPUSCULAR HEMOGLOBIN 31 pg (27-31); MEAN CORPUSCULAR HGB CONC 34 g/dl (33.0-37.0); MEAN PLATELET VOLUME 11.5 fl (7.4-10.4); MONO # 0.3 K/mm3 (0.1-0.6); MONO % 11.3 % (1.7-9.3); PLATELET COUNT 144 K/mm3 (130-400); RED BLOOD COUNT 3.47 M/mm3 (4.10-5.30); REDCELL DISTRIBUTION WIDTH-CV 12.4 % (11.5-14.5)
[2023-09-05 10:25] LABS: HEMATOCRIT 31.9 % (37.0-47.0)
[2023-09-05 10:32] LABS: ALBUMIN 4.2 gm/dL (3.4-4.8); BILIRUBIN,TOTAL 0.5 mg/dL (0.2-1.2); CALCIUM 9.9 mg/dL (8.4-10.2); CREATININE, serum 1.16 mg/dL (0.57-1.11); POTASSIUM 4.3 mmol/L (3.5-4.5); TOTAL PROTEIN 7.5 gm/dL (6.2-8.1)
[2023-09-05 10:36] VITALS: BP 118/73; PULSE 62; TEMP 98.6
[2023-09-05] MEDS ORDERED: methylPREDNISolone Sod Succ 125 MG/2 ML VIAL IV ONE (10:45)
[2023-09-05] MEDS ORDERED: diphenhydrAMINE 50 MG/ML 1 ML VIAL IV ONE (10:45)
[2023-09-05] MEDS ORDERED: INFLIXIMAB DYYB IV ONE (10:45)
[2023-09-05] MEDS ORDERED: Acetaminophen 500 MG TAB PO ONE (10:45)
[2023-09-05] MEDS ORDERED: NS IV ONE (10:45)
[2023-09-05 11:19] VITALS: BP 129/82; PULSE 57
[2023-09-05 11:30] VITALS: BP 121/79; PULSE 56
[2023-09-05 12:00] VITALS: BP 149/85; PULSE 77
[2023-09-05 13:00] VITALS: BP 128/81; PULSE 60
[2023-09-05 13:15] VITALS: BP 120/69; PULSE 55
--- NOTE | 2023-09-05 13:21 | NUR ---
Pt tolerated infusion without issue. IV DC'd, site wrapped with coban. Pt exits dept with steady gait.
== END 2023-09-05 13:21 | disposition home or self-care (01) ==
LOC: EUO 09:31
PROVIDERS: Internal Medicine Gastroenterology
DX: K50.919 Crohn's disease, unspecified, with unspecified complications (principal)
CPT/HCPCS: J2930; J7050; Q5103

== ENCOUNTER 2023-10-31 09:24 | Outpatient (CLI) | payer BC ==
[~2023-10-31] VITALS: Ht 170.2 cm; Wt 87.5 kg
[2023-10-31 09:55] LABS: BASO # 0.1 K/mm3 (0.0-0.2); BASO % 1.4 % (0.0-2.0); EOS # 0.1 K/mm3 (0.0-0.7); GRAN # 1.9 K/mm3 (1.4-6.5); GRAN % 50.2 % (42.2-75.2); HEMOGLOBIN 10.7 g/dl (12.5-16.0); LYMPH # 1.3 K/mm3 (1.2-3.4); LYMPH % 35.4 % (20.0-51.0); MEAN CELL VOLUME 93 fl (80.0-100.0); MEAN CORPUSCULAR HEMOGLOBIN 31 pg (27-31); MEAN CORPUSCULAR HGB CONC 33 g/dl (33.0-37.0); MEAN PLATELET VOLUME 10.6 fl (7.4-10.4); MONO # 0.4 K/mm3 (0.1-0.6); PLATELET COUNT 171 K/mm3 (130-400); RED BLOOD COUNT 3.45 M/mm3 (4.10-5.30); REDCELL DISTRIBUTION WIDTH-CV 13.2 % (11.5-14.5)
[2023-10-31 09:58] LABS: HEMATOCRIT 32.1 % (37.0-47.0)
[2023-10-31 10:14] LABS: ALBUMIN 3.9 g/dL (3.4-4.8); BILIRUBIN,TOTAL 0.6 mg/dL (0.2-1.2); CALCIUM 9.9 mg/dL (8.4-10.2); CREATININE, serum 1.11 mg/dL (0.57-1.11); POTASSIUM 4.5 mEq/L (3.5-4.5); TOTAL PROTEIN 7.6 g/dl (6.2-8.1)
[2023-10-31] MEDS ORDERED: methylPREDNISolone Sod Succ 125 MG/2 ML VIAL IV ONE (10:15)
[2023-10-31] MEDS ORDERED: diphenhydrAMINE 50 MG/ML 1 ML VIAL IV ONE (10:15)
[2023-10-31] MEDS ORDERED: INFLIXIMAB DYYB IV ONE (10:15)
[2023-10-31] MEDS ORDERED: NS IV ONE (10:15)
[2023-10-31] MEDS ORDERED: Acetaminophen 500 MG TAB PO ONE (10:15)
[2023-10-31 10:49] VITALS: BP 119/80; PULSE 60; TEMP 98.5
[2023-10-31 11:00] VITALS: BP 116/67; PULSE 65
--- NOTE | 2023-10-31 11:07 | NUR ---
Pt refused Benadryl but takes other premeds orders.
[2023-10-31 11:30] VITALS: BP 133/79; PULSE 61
[2023-10-31 12:00] VITALS: BP 128/79; PULSE 64
[2023-10-31 12:30] VITALS: BP 137/80; PULSE 59
[2023-10-31 12:45] VITALS: BP 137/81; PULSE 60
== END 2023-10-31 13:28 ==
LOC: EUO 09:24
PROVIDERS: Internal Medicine Gastroenterology
DX: K50.919 Crohn's disease, unspecified, with unspecified complications (principal)
CPT/HCPCS: J2919; J7050; Q5103

== ENCOUNTER 2023-12-26 09:37 | Outpatient (CLI) | payer BC ==
[~2023-12-26] VITALS: Ht 170.2 cm; Wt 91.0 kg
[2023-12-26] VITALS (7 sets, daily range): BP systolic 114–141; BP diastolic 61–88; PULSE 60–74; TEMP 98.2
[~2023-12-26 09:37] MED LIST changes: -CELEXA40 MG PO
[2023-12-26 10:18] LABS: BASO % 1.1 % (0.0-2.0); EOS # 0.1 K/mm3 (0.0-0.7); EOS % 2.6 % (0.0-4.0); GRAN # 1.9 K/mm3 (1.4-6.5); GRAN % 50.8 % (42.2-75.2); HEMOGLOBIN 10.1 g/dl (12.5-16.0); LYMPH # 1.4 K/mm3 (1.2-3.4); LYMPH % 37.3 % (20.0-51.0); MEAN CELL VOLUME 94 fl (80.0-100.0); MEAN CORPUSCULAR HEMOGLOBIN 31 pg (27-31); MEAN CORPUSCULAR HGB CONC 33 g/dl (33.0-37.0); MEAN PLATELET VOLUME 10.4 fl (7.4-10.4); MONO # 0.3 K/mm3 (0.1-0.6); MONO % 7.9 % (1.7-9.3); PLATELET COUNT 184 K/mm3 (130-400); REDCELL DISTRIBUTION WIDTH-CV 13.2 % (11.5-14.5)
[2023-12-26 10:29] LABS: ALBUMIN 3.8 g/dL (3.4-4.8); BILIRUBIN,TOTAL 0.6 mg/dL (0.2-1.2); CALCIUM 9.7 mg/dL (8.4-10.2); CREATININE, serum 0.9 mg/dL (0.57-1.11); POTASSIUM 4.2 mEq/L (3.5-4.5); TOTAL PROTEIN 7.1 g/dl (6.2-8.1)
[2023-12-26] MEDS ORDERED: methylPREDNISolone Sod Succ 125 MG/2 ML VIAL IV ONE (10:45)
[2023-12-26] MEDS ORDERED: NS IV ONE (10:45)
[2023-12-26] MEDS ORDERED: diphenhydrAMINE 50 MG/ML 1 ML VIAL IV ONE (10:45)
[2023-12-26] MEDS ORDERED: Acetaminophen 500 MG TAB PO ONE (10:45)
[2023-12-26] MEDS ORDERED: INFLIXIMAB DYYB IV ONE (10:45)
--- NOTE | 2023-12-26 14:05 | NUR ---
PT TOLERATED INFUSION WELL. VS REMAINED WITHIN NORMAL LIMITS. PT FREE FROM ACUTE CONCERNS AND COMPLAINTS. PT AMBULATED TO MAIN LOBBY INDEPENDENTLY. IV DISCONTINUED. NEXT APPOINTMENT SCHEDULED.
[2024-02-20] MEDS ORDERED: VITAMIN D31000 I1 PO (10:16)
[2024-02-20] MEDS ORDERED: COMPLETE MULTI1 TAB PO (10:16)
== END 2023-12-26 14:06 | disposition home or self-care (01) ==
LOC: EUO 09:37
PROVIDERS: Internal Medicine Gastroenterology
DX: K50.919 Crohn's disease, unspecified, with unspecified complications (principal)
CPT/HCPCS: J2919; J7050; Q5103

== ENCOUNTER 2024-04-16 09:59 | Outpatient (CLI) | payer BC ==
[~2024-04-16] VITALS: Ht 170.2 cm; Wt 91.9 kg
[2024-04-16] VITALS (8 sets, daily range): BP systolic 128–148; BP diastolic 66–95; PULSE 60–70
[~2024-04-16 09:59] MED LIST changes: +COMPLETE MULTI1 TAB PO; +VITAMIN D31000 I1 PO
[2024-04-16 10:31] LABS: BASO # 0.1 K/mm3 (0.0-0.2); BASO % 1.5 % (0.0-2.0); EOS # 0.1 K/mm3 (0.0-0.7); EOS % 2.5 % (0.0-4.0); GRAN % 49.1 % (42.2-75.2); HEMOGLOBIN 11.2 g/dl (12.5-16.0); LYMPH # 1.5 K/mm3 (1.2-3.4); LYMPH % 37.5 % (20.0-51.0); MEAN CELL VOLUME 94 fl (80.0-100.0); MEAN CORPUSCULAR HEMOGLOBIN 32 pg (27-31); MEAN CORPUSCULAR HGB CONC 33 g/dl (33.0-37.0); MEAN PLATELET VOLUME 10.3 fl (7.4-10.4); MONO # 0.4 K/mm3 (0.1-0.6); MONO % 9.4 % (1.7-9.3); PLATELET COUNT 193 K/mm3 (130-400); RED BLOOD COUNT 3.56 M/mm3 (4.10-5.30); REDCELL DISTRIBUTION WIDTH-CV 13.1 % (11.5-14.5)
[2024-04-16 10:35] LABS: HEMATOCRIT 33.5 % (37.0-47.0)
[2024-04-16 10:50] LABS: ALBUMIN 4.1 g/dL (3.4-4.8); BILIRUBIN,TOTAL 0.7 mg/dL (0.2-1.2); CALCIUM 9.9 mg/dL (8.4-10.2); CREATININE, serum 1.1 mg/dL (0.57-1.11); POTASSIUM 4.7 mEq/L (3.5-4.5); TOTAL PROTEIN 7.6 g/dl (6.2-8.1)
[2024-04-16] MEDS ORDERED: INFLIXIMAB DYYB IV ONE (11:00)
[2024-04-16] MEDS ORDERED: NS IV ONE (11:00)
[2024-04-16] MEDS ORDERED: diphenhydrAMINE 50 MG/ML 1 ML VIAL IV ONE (11:00)
[2024-04-16] MEDS ORDERED: Acetaminophen 500 MG TAB PO ONE (11:00)
[2024-04-16] MEDS ORDERED: methylPREDNISolone Sod Succ 125 MG/2 ML VIAL IV ONE (11:00)
--- NOTE | 2024-04-16 13:31 | NUR ---
PT TOLERATED INFUSION WELL. VS REMAINED WITHIN NORMAL LIMITS. PT AMBULATED INDEPENDENTLY TO MAIN [facility] UPON DISCHARGE. PT FREE FROM ACUTE CONCERNS AND COMPLAINTS. IV DISCONTINUED.
== END 2024-04-16 13:32 | disposition home or self-care (01) ==
LOC: EUO 09:59
PROVIDERS: Internal Medicine Gastroenterology
DX: K50.919 Crohn's disease, unspecified, with unspecified complications (principal)
CPT/HCPCS: J2919; J7050; Q5103

== ENCOUNTER → 2024-05-02 | Outpatient (CLI) | payer BC ==
[~2024-05-02] MED LIST changes: +Iohexol 300 - 10 ML VIAL IV ONE; +Triamcinolone 40 MG/ML 1 ML VIAL IJ ONE
== END ==
LOC: COL.RAD 08:43
DX: M79.672 Pain in left foot (principal)
CPT/HCPCS: J0665; J3301; Q9967